=== PATIENT | female | born 1945 | race Caucasian/White ===

== ENCOUNTER → 2016-03-21 | Outpatient (REF) | payer MEDICARE ==
[~2016-03-21] MED LIST: ALLO100T PO; AMLO5TAB2 PO; ASPI81TA85 PO; BISO10TA PO; CRES20TA PO; CYAN1000VL IM; DRIS50002 PO; FERR325T PO; GLIP10TA6 PO; HYDR-4266 PO; HYDR12.55 PO; JANU100T PO; LEVO150T7 PO; MAGN400C2 PO; METF1000 PO; VITA100037 PO
[2016-03-21 12:46] LABS: BASO % 0.5 % (0.0-1.0); EOS # 0.1 K/mm3 (0.0-0.50); EOS % 1.9 % (0.0-3.0); LARGE UNSTAINED CELL # 0.1 K/mm3 (0.0-0.4); LARGE UNSTAINED CELL % 1.8 % (0.0-4.0); LYMPH # 0.6 K/mm3 (1.5-4.5); LYMPH % 9.1 % (24.0-44.0); MEAN CORPUSCULAR HEMOGLOBIN 29.4 pg (27.0-33.0); MEAN CORPUSCULAR HGB CONC 31.6 g/dl (32.0-36.5); MEAN CORPUSCULAR VOLUME 93.1 fl (80.0-96.0); MONO # 0.5 K/mm3 (0.0-0.8); MONO % 7.4 % (0.0-5.0); NEUTROPHILS # 4.8 K/mm3 (1.8-7.7); NEUTROPHILS % 79.3 % (36.0-66.0); PLATELET COUNT, AUTOMATED 174 k/mm3 (150-450); RED CELL DISTRIBUTION WIDTH 13.4 % (11.5-14.5)
[2016-03-21 13:07] LABS: VITAMIN B12 LEVEL 1666 PG/ML
[2016-03-21 13:08] LABS: FOLATE 8.8 NG/ML
[2016-03-21 14:17] LABS: ALBUMIN 3.6 GM/DL (3.2-5.2); ALBUMIN/GLOBULIN RATIO 0.95 (1.00-1.93); ALKALINE PHOSPHATASE 91 U/L (45-117); ALT/SGPT 28 U/L (12-78); ANION GAP 10 MEQ/L (8-16); AST/SGOT 14 U/L (15-37); BILIRUBIN,TOTAL 0.4 MG/DL (0.2-1.0); BLOOD UREA NITROGEN 27 MG/DL (7-18); CARBON DIOXIDE LEVEL 28 MEQ/L (21-32); CHLORIDE LEVEL 104 MEQ/L (98-107); CHOLESTEROL LEVEL 141 MG/DL (<200); CREATININE FOR GFR 0.85 MG/DL (0.55-1.02); GLOMERULAR FILTRATION RATE > 60.0 (>39); GLUCOSE, FASTING 141 MG/DL (83-110); MAGNESIUM LEVEL 1.3 MG/DL (1.8-2.4); POTASSIUM SERUM 4.5 MEQ/L (3.5-5.1); SODIUM LEVEL 142 MEQ/L (136-145); TOTAL PROTEIN 7.4 GM/DL (6.4-8.2); TRIGLYCERIDES LEVEL 166 MG/DL (<150)
== END ==
LOC: M SFHCADAM 08:15
PROVIDERS: ATTEND Physician Assistant Medical
DX: D51.8 Other vitamin B12 deficiency anemias (principal); E78.4 Other hyperlipidemia; E83.42 Hypomagnesemia; E03.9 Hypothyroidism, unspecified; E11.9 Type 2 diabetes mellitus without complications

== ENCOUNTER → 2016-03-29 | Outpatient (REF) | payer MEDICARE | LOC: M SFHCADAM 08:48 | PROVIDERS: ATTEND Physician Assistant Medical | DX: E03.9 Hypothyroidism, unspecified (principal); E78.4 Other hyperlipidemia; E11.9 Type 2 diabetes mellitus without complications; D51.8 Other vitamin B12 deficiency anemias ==

== ENCOUNTER → 2016-05-17 | Outpatient (REF) | payer MEDICARE ==
[2016-05-17 12:53] LABS: MEAN CORPUSCULAR HEMOGLOBIN 30.4 pg (27.0-33.0); MEAN CORPUSCULAR HGB CONC 32.6 g/dl (32.0-36.5); MEAN CORPUSCULAR VOLUME 93.3 fl (80.0-96.0); RED CELL DISTRIBUTION WIDTH 13.7 % (11.5-14.5); WHITE BLOOD COUNT 5.5 K/mm3 (4.0-10.0)
[2016-05-17 13:27] LABS: FREE T4 1.38 NG/DL (0.76-1.46); PERCENT SATURATION 18.5 % (13.2-37.4)
== END ==
LOC: M SFHCADAM 08:15
PROVIDERS: ATTEND Physician Assistant Medical
DX: Z00.00 Encounter for general adult medical examination without abnormal findings (principal); N18.3 Chronic kidney disease, stage 3 (moderate); E03.9 Hypothyroidism, unspecified; E11.9 Type 2 diabetes mellitus without complications; E55.9 Vitamin D deficiency, unspecified

== ENCOUNTER → 2016-09-29 | Outpatient (REF) | payer MEDICARE ==
[~2016-09-29] MED LIST changes: +FERR1TAB8 PO; -FERR325T PO; +HYDR-3910 PO; -HYDR-4266 PO; -METF1000 PO; +METF10004 PO; -VITA100037 PO; +VITA100067 PO
[2016-09-29 12:59] LABS: BASO % 0.5 % (0.0-1.0); EOS # 0.2 K/mm3 (0.0-0.50); EOS % 3.5 % (0.0-3.0); LARGE UNSTAINED CELL # 0.1 K/mm3 (0.0-0.4); LARGE UNSTAINED CELL % 1.5 % (0.0-4.0); LYMPH # 0.8 K/mm3 (1.5-4.5); LYMPH % 11.2 % (24.0-44.0); MEAN CORPUSCULAR HEMOGLOBIN 31.4 pg (27.0-33.0); MEAN CORPUSCULAR HGB CONC 33.9 g/dl (32.0-36.5); MEAN CORPUSCULAR VOLUME 92.7 fl (80.0-96.0); MONO # 0.4 K/mm3 (0.0-0.8); MONO % 7.4 % (0.0-5.0); NEUTROPHILS # 4.5 K/mm3 (1.8-7.7); NEUTROPHILS % 75.8 % (36.0-66.0); PLATELET COUNT, AUTOMATED 198 k/mm3 (150-450); RED CELL DISTRIBUTION WIDTH 14.4 % (11.5-14.5)
[2016-09-29 13:20] LABS: ALBUMIN 3.8 GM/DL (3.2-5.2); ALBUMIN/GLOBULIN RATIO 1.03 (1.00-1.93); BILIRUBIN,TOTAL 0.4 MG/DL (0.2-1.0); CALCIUM LEVEL 9.7 MG/DL (8.8-10.2); FREE T4 1.67 NG/DL (0.76-1.46); MAGNESIUM LEVEL 1.5 MG/DL (1.8-2.4); POTASSIUM SERUM 4.5 MEQ/L (3.5-5.1); TOTAL PROTEIN 7.5 GM/DL (6.4-8.2)
== END ==
LOC: M SFHCADAM 07:59
PROVIDERS: ATTEND Physician Assistant Medical
DX: Z00.00 Encounter for general adult medical examination without abnormal findings (principal); D51.8 Other vitamin B12 deficiency anemias; I10 Essential (primary) hypertension; E03.9 Hypothyroidism, unspecified; E11.9 Type 2 diabetes mellitus without complications; E78.4 Other hyperlipidemia; E83.42 Hypomagnesemia; E55.9 Vitamin D deficiency, unspecified

== ENCOUNTER → 2016-12-22 | Outpatient (REF) | payer MEDICARE | LOC: M LAB REF 13:34 | PROVIDERS: ATTEND Internal Medicine Nephrology | DX: N39.0 Urinary tract infection, site not specified (principal) ==

== ENCOUNTER → 2017-04-27 | Outpatient (REF) | payer MEDICARE ==
[2017-04-27 19:02] LABS: BACTERIA, URINE SMALL AMOUNT; MUCUS, URINE MOD AMOUNT (NEGATIVE); RBC, URINE TNTC /hpf (0-3); SQUAMOUS EPITHELIAL CELL URINE LARGE AMOUNT /hpf (SMALL AMT); TRANSITIONAL EPI CELLS, URINE MOD AMOUNT /hpf
[2017-04-27 19:03] LABS: HYALINE CAST, URINE 0-1 /lpf (0-1); MICROSCOPIC EXAM PERFORMED
== END ==
LOC: M LAB REF 16:50
DX: R31.9 Hematuria, unspecified (principal)
CPT/HCPCS: 81015

== ENCOUNTER → 2017-05-02 | Outpatient (REF) | payer MEDICARE ==
[2017-05-02 14:00] LABS: ESTIMATED AVERAGE GLUCOSE 174 MG/DL (60-110); HEMOGLOBIN A1c 7.7 %
[2017-05-02 14:02] LABS: FOLATE 12.9 NG/ML; VITAMIN B12 LEVEL 906 PG/ML
[2017-05-02 14:10] LABS: CHOLESTEROL LEVEL 145 MG/DL (<200); CHOLESTEROL RISK RATIO 3.536 (<5); FREE T4 1.33 NG/DL (0.76-1.46); HDL CHOLESTEROL 41 MG/DL (>40); LDL CHOLESTEROL 70.2 MG/DL (<100); NON-HDL-C 104 MG/DL; THYROID STIMULATING HORMONE 0.626 uIU/ML (0.358-3.740); TRIGLYCERIDES LEVEL 169 MG/DL (<150)
== END ==
LOC: M SFHCADAM 08:32
DX: D51.8 Other vitamin B12 deficiency anemias (principal); E78.4 Other hyperlipidemia; E55.9 Vitamin D deficiency, unspecified; E11.9 Type 2 diabetes mellitus without complications; E03.9 Hypothyroidism, unspecified
CPT/HCPCS: 82746

== ENCOUNTER → 2017-05-16 | Outpatient (CLI) | payer MEDICARE | LOC: M RAD 11:48 | DX: R31.9 Hematuria, unspecified (principal); N18.3 Chronic kidney disease, stage 3 (moderate); E11.22 Type 2 diabetes mellitus with diabetic chronic kidney disease | CPT/HCPCS: 76775 ==

== ENCOUNTER → 2017-09-28 | Outpatient (REF) | payer MEDICARE ==
[2017-09-28 13:24] LABS: BASO % 0.4 % (0.0-1.0); EOS # 0.2 10^3/uL (0.0-0.50); EOS % 3.1 % (0.0-3.0); HEMATOCRIT 37.4 % (36.0-47.0); IMMATURE GRANULOCYTE % 0.9 % (0-3.0); LYMPH # 0.8 10^3/uL (1.5-4.5); LYMPH % 11.5 % (24.0-44.0); MEAN CORPUSCULAR HEMOGLOBIN 30.5 pg (27.0-33.0); MEAN CORPUSCULAR HGB CONC 32.1 g/dl (32.0-36.5); MEAN CORPUSCULAR VOLUME 94.9 fl (80.0-96.0); MONO # 0.5 10^3/uL (0.0-0.8); MONO % 7.4 % (0.0-5.0); NEUTROPHILS # 5.2 10^3/uL (1.8-7.7); NEUTROPHILS % 76.7 % (36.0-66.0); PLATELET COUNT, AUTOMATED 222 10^3/uL (150-450); RED BLOOD COUNT 3.94 10^6/uL (4.00-5.40); RED CELL DISTRIBUTION WIDTH 13.8 % (11.5-14.5); WHITE BLOOD COUNT 6.8 10^3/uL (4.0-10.0)
[2017-09-28 13:46] LABS: TOTAL 25(OH) VITAMIN D 23.7 NG/ML (30.0-100.0)
[2017-09-28 13:47] LABS: THYROID STIMULATING HORMONE 0.628 uIU/ML (0.358-3.740)
[2017-09-28 13:47] LABS: ALBUMIN 3.7 GM/DL (3.2-5.2); ALBUMIN/GLOBULIN RATIO 0.97 (1.00-1.93); ALKALINE PHOSPHATASE 106 U/L (45-117); ALT/SGPT 31 U/L (12-78); ANION GAP 10 MEQ/L (8-16); AST/SGOT 17 U/L (7-37); BILIRUBIN,TOTAL 0.4 MG/DL (0.2-1.0); BLOOD UREA NITROGEN 35 MG/DL (7-18); CALCIUM LEVEL 9.4 MG/DL (8.8-10.2); CARBON DIOXIDE LEVEL 25 MEQ/L (21-32); CHLORIDE LEVEL 106 MEQ/L (98-107); CHOLESTEROL LEVEL 155 MG/DL (<200); CHOLESTEROL RISK RATIO 3.604 (<5); FREE T4 1.35 NG/DL (0.76-1.46); GLOMERULAR FILTRATION RATE 57.9 (>39); GLUCOSE, FASTING 148 MG/DL (70-100); HDL CHOLESTEROL 43 MG/DL (>40); MAGNESIUM LEVEL 1.6 MG/DL (1.8-2.4); NON-HDL-C 112 MG/DL; SODIUM LEVEL 141 MEQ/L (136-145); TOTAL PROTEIN 7.5 GM/DL (6.4-8.2); TRIGLYCERIDES LEVEL 190 MG/DL (<150); VITAMIN B12 LEVEL 445 PG/ML (247-911)
[2017-09-28 14:16] LABS: POTASSIUM SERUM 6.2 MEQ/L (3.5-5.1)
[2017-09-28 14:31] LABS: ESTIMATED AVERAGE GLUCOSE 174 MG/DL (60-110); HEMOGLOBIN A1c 7.7 %
== END ==
LOC: M SFHCADAM 09:47
DX: E78.4 Other hyperlipidemia (principal); D51.8 Other vitamin B12 deficiency anemias; E03.9 Hypothyroidism, unspecified; E11.9 Type 2 diabetes mellitus without complications; E55.9 Vitamin D deficiency, unspecified; Z79.899 Other long term (current) drug therapy
CPT/HCPCS: 83735

== ENCOUNTER → 2017-10-01 | Outpatient (REF) | payer MEDICARE ==
[2017-10-01 18:28] LABS: ANION GAP 9 MEQ/L (8-16); BLOOD UREA NITROGEN 38 MG/DL (7-18); CALCIUM LEVEL 9.6 MG/DL (8.8-10.2); CARBON DIOXIDE LEVEL 25 MEQ/L (21-32); CHLORIDE LEVEL 107 MEQ/L (98-107); CREATININE FOR GFR 1.07 MG/DL (0.55-1.30); GLOMERULAR FILTRATION RATE 53.5 (>39); GLUCOSE, FASTING 183 MG/DL (70-100); SODIUM LEVEL 141 MEQ/L (136-145)
[2017-10-01 18:30] LABS: POTASSIUM SERUM 5.4 MEQ/L (3.5-5.1)
== END ==
LOC: M SFHCADAM 08:59
DX: E87.5 Hyperkalemia (principal)
CPT/HCPCS: 80048

== ENCOUNTER → 2018-05-03 | Outpatient (REF) | payer MEDICARE ==
[~2018-05-03] MED LIST changes: -AMLO5TAB2 PO; +AMLO5TAB6 PO; -DRIS50002 PO; +DRIS50003 PO
[2018-05-03 13:33] LABS: CHOLESTEROL RISK RATIO 3.976 (<5); THYROID STIMULATING HORMONE 0.894 uIU/ML (0.358-3.740); TOTAL 25(OH) VITAMIN D 25.5 NG/ML (30.0-100.0)
[2018-05-03 14:41] LABS: HEMOGLOBIN A1c 7.4 %
== END ==
LOC: M SFHCADAM 09:14
PROVIDERS: ATTEND Physician Assistant Medical
DX: E03.9 Hypothyroidism, unspecified (principal); N18.3 Chronic kidney disease, stage 3 (moderate); E55.9 Vitamin D deficiency, unspecified; E11.22 Type 2 diabetes mellitus with diabetic chronic kidney disease
CPT/HCPCS: 80061; 82306; 83036; 84443; G0463

== ENCOUNTER → 2018-11-19 | Outpatient (REF) | payer MEDICARE ==
[~2018-11-19] MED LIST changes: -BISO10TA PO; +BISO10TA13 PO; -CRES20TA PO; +CRES20TA2 PO
[2018-11-19 13:24] LABS: ALBUMIN 3.7 GM/DL (3.2-5.2); ALT/SGPT 26 U/L (12-78); BILIRUBIN,TOTAL 0.4 MG/DL (0.2-1.0); BLOOD UREA NITROGEN 29 MG/DL (7-18); CALCIUM LEVEL 9.6 MG/DL (8.8-10.2); CARBON DIOXIDE LEVEL 25 MEQ/L (21-32); CHLORIDE LEVEL 107 MEQ/L (98-107); CHOLESTEROL LEVEL 156 MG/DL (<200); CHOLESTEROL RISK RATIO 3.627 (<5); CREATININE FOR GFR 0.95 MG/DL (0.55-1.30); FERRITIN 20 NG/ML (8-252); GLOMERULAR FILTRATION RATE > 60.0 (>39); GLUCOSE, FASTING 130 MG/DL (70-100); HDL CHOLESTEROL 43 MG/DL (>40); IRON (FE) 60 UG/DL (50-170); LDL CHOLESTEROL 74 MG/DL (<100); NON-HDL-C 113 MG/DL; PERCENT SATURATION 14.5 % (13.2-45.0); POTASSIUM SERUM 5.3 MEQ/L (3.5-5.1); SODIUM LEVEL 142 MEQ/L (136-145); THYROID STIMULATING HORMONE 0.867 uIU/ML (0.358-3.740); TOTAL 25(OH) VITAMIN D 25.9 NG/ML (30.0-100.0); TOTAL IRON BINDING CAPACITY 414 UG/DL (250-450); TOTAL PROTEIN 7.9 GM/DL (6.4-8.2); TRIGLYCERIDES LEVEL 196 MG/DL (<150); VITAMIN B12 LEVEL 476 PG/ML (247-911)
[2018-11-19 13:28] LABS: MAU/CREAT RATIO 281.8 MCG/MG (0.0-30.0)
== END ==
LOC: M SFHCADAM 09:34
PROVIDERS: ATTEND Physician Assistant Medical
DX: D51.8 Other vitamin B12 deficiency anemias (principal); E55.9 Vitamin D deficiency, unspecified; E03.9 Hypothyroidism, unspecified; D50.9 Iron deficiency anemia, unspecified; M1A.3790 Chronic gout due to renal impairment, unspecified ankle and foot, without tophus (tophi); E11.22 Type 2 diabetes mellitus with diabetic chronic kidney disease; E78.2 Mixed hyperlipidemia
CPT/HCPCS: 80053; 80061; 82043; 82306; 82607; 82728; 83550; 84439; 84443; 93005; G0463

== ENCOUNTER → 2018-12-26 | Outpatient (REF) | payer MEDICARE | LOC: M LAB REF 16:56 | PROVIDERS: ATTEND Nurse Practitioner Family | DX: E83.42 Hypomagnesemia (principal) ==

== ENCOUNTER → 2019-04-03 | Outpatient (REF) | payer MEDICARE | LOC: M LAB REF 16:45 | PROVIDERS: ATTEND Nurse Practitioner Family | DX: E83.42 Hypomagnesemia (principal) ==

== ENCOUNTER 2019-04-08 10:42 | Outpatient (CLI) | payer MEDICARE ==
[~2019-04-08] VITALS: Ht 157.5 cm; Wt 78.7 kg
[2019-04-08 11:08] VITALS: BP 152/65
[2019-04-08] MEDS: MAG SULF 1GM/100ML (MAG RUN) X 2 DOSES (2GM TOTAL) IV SCH ×4 (11:30→12:19)
[2019-04-08 12:00] VITALS: BP 137/65
[2019-04-08 13:10] VITALS: BP 156/74
== END 2019-04-08 13:10 | disposition home or self-care (01) ==
LOC: M INFU 10:42
PROVIDERS: ATTEND Internal Medicine Nephrology
DX: E83.42 Hypomagnesemia (principal); Z88.2 Allergy status to sulfonamides
CPT/HCPCS: 96365; J3475

== ENCOUNTER → 2019-08-14 | Outpatient (REF) | payer MEDICARE ==
[2019-08-14 18:55] LABS: MAGNESIUM URINE RANDOM 4.5 MG/DL
== END ==
LOC: M LAB REF 16:38
PROVIDERS: ATTEND Nurse Practitioner Family
DX: E83.42 Hypomagnesemia (principal); N18.3 Chronic kidney disease, stage 3 (moderate)

== ENCOUNTER → 2019-11-25 | Outpatient (REF) | payer MEDICARE ==
[~2019-11-25] MED LIST changes: +AMLO1TAB24 PO; -AMLO5TAB6 PO; -ASPI81TA85 PO; +ASPI81TA86 PO
[2019-11-25 19:01] LABS: CREATININE 24 HOUR, URINE 425.7 MG/24HR (600-1800); MAGNESIUM, URINE 5.3 MG/DL; URINE MAGNESIUM 24HR 17.4 MG/24HR (24-255)
== END ==
LOC: M LAB REF 17:48
PROVIDERS: ATTEND Nurse Practitioner Family
DX: E83.42 Hypomagnesemia (principal); N18.3 Chronic kidney disease, stage 3 (moderate)

== ENCOUNTER → 2019-12-02 | Outpatient (REF) | payer MEDICARE ==
[2019-12-02 14:17] LABS: BASO % 0.5 % (0.0-1.0); EOS # 0.2 10^3/uL (0.0-0.5); EOS % 2.4 % (0.0-3.0); HEMATOCRIT 38.1 % (36.0-47.0); HEMOGLOBIN 11.7 g/dl (12.0-15.5); LYMPH # 0.8 10^3/uL (1.5-5.0); LYMPH % 12.7 % (24.0-44.0); MEAN CORPUSCULAR HEMOGLOBIN 29.7 pg (27.0-33.0); MEAN CORPUSCULAR HGB CONC 30.7 g/dl (32.0-36.5); MEAN CORPUSCULAR VOLUME 96.7 fl (80.0-96.0); MONO # 0.6 10^3/uL (0.0-0.8); MONO % 9.3 % (0.0-5.0); NEUTROPHILS # 4.9 10^3/uL (1.5-8.5); NEUTROPHILS % 74.3 % (36.0-66.0); PLATELET COUNT, AUTOMATED 247 10^3/uL (150-450); RED BLOOD COUNT 3.94 10^6/uL (4.00-5.40); WHITE BLOOD COUNT 6.6 10^3/uL (4.0-10.0)
[2019-12-02 14:31] LABS: ALBUMIN 3.5 GM/DL (3.2-5.2); ALT/SGPT 26 U/L (12-78); BILIRUBIN,TOTAL 0.4 MG/DL (0.2-1.0); BLOOD UREA NITROGEN 33 MG/DL (7-18); CALCIUM LEVEL 9.6 MG/DL (8.8-10.2); CARBON DIOXIDE LEVEL 25 MEQ/L (21-32); CHLORIDE LEVEL 108 MEQ/L (98-107); CHOLESTEROL LEVEL 137 MG/DL (<200); CHOLESTEROL RISK RATIO 3.512 (<5); CREATININE FOR GFR 0.86 MG/DL (0.55-1.30); FERRITIN 17 NG/ML (8-252); FREE T4 1.64 NG/DL (0.76-1.46); GLOMERULAR FILTRATION RATE > 60.0 (>39); GLUCOSE, FASTING 142 MG/DL (70-100); HDL CHOLESTEROL 39 MG/DL (>40); IRON (FE) 66 UG/DL (50-170); LDL CHOLESTEROL 69 MG/DL (<100); NON-HDL-C 98 MG/DL; PERCENT SATURATION 21.1 % (13.2-45.0); POTASSIUM SERUM 5.3 MEQ/L (3.5-5.1); SODIUM LEVEL 140 MEQ/L (136-145); THYROID STIMULATING HORMONE 0.372 uIU/ML (0.358-3.740); TOTAL 25(OH) VITAMIN D 28.1 NG/ML (30.0-100.0); TOTAL IRON BINDING CAPACITY 313 UG/DL (250-450); TOTAL PROTEIN 7.4 GM/DL (6.4-8.2); TRIGLYCERIDES LEVEL 143 MG/DL (<150); VITAMIN B12 LEVEL 1255 PG/ML (247-911)
[2019-12-02 15:44] LABS: HEMOGLOBIN A1c 6.7 %
== END ==
LOC: M SFHCADAM 09:59
PROVIDERS: ATTEND Physician Assistant Medical
DX: E11.22 Type 2 diabetes mellitus with diabetic chronic kidney disease (principal); I10 Essential (primary) hypertension; E55.9 Vitamin D deficiency, unspecified; E03.9 Hypothyroidism, unspecified; I50.32 Chronic diastolic (congestive) heart failure; E83.42 Hypomagnesemia; D50.9 Iron deficiency anemia, unspecified; E78.2 Mixed hyperlipidemia; D51.8 Other vitamin B12 deficiency anemias

== ENCOUNTER → 2020-06-01 | Outpatient (REF) | payer MEDICARE | LOC: M LAB REF 17:11 | PROVIDERS: ATTEND Physician Assistant | DX: C44.529 Squamous cell carcinoma of skin of other part of trunk (principal) | CPT/HCPCS: 11102; 88305; G0463 ==

== ENCOUNTER → 2020-06-15 | Outpatient (REF) | payer MEDICARE ==
[2020-06-15 18:19] LABS: BASO % 0.7 % (0.0-1.0); EOS # 0.2 10^3/uL (0.0-0.5); EOS % 2.9 % (0.0-3.0); HEMATOCRIT 37.2 % (36.0-47.0); HEMOGLOBIN 11.3 g/dl (12.0-15.5); LYMPH % 17.3 % (24.0-44.0); MEAN CORPUSCULAR HEMOGLOBIN 29.2 pg (27.0-33.0); MEAN CORPUSCULAR HGB CONC 30.4 g/dl (32.0-36.5); MEAN CORPUSCULAR VOLUME 96.1 fl (80.0-96.0); MONO # 0.5 10^3/uL (0.0-0.8); MONO % 9.3 % (2.0-8.0); NEUTROPHILS % 68.9 % (36.0-66.0); PLATELET COUNT, AUTOMATED 254 10^3/uL (150-450); RED BLOOD COUNT 3.87 10^6/uL (4.00-5.40); WHITE BLOOD COUNT 5.8 10^3/uL (4.0-10.0)
[2020-06-15 19:09] LABS: HEMOGLOBIN A1c 6.3 %
[2020-06-15 19:37] LABS: CHOLESTEROL RISK RATIO 2.82 (<5); MAGNESIUM LEVEL 1.3 MG/DL (1.8-2.4); THYROID STIMULATING HORMONE 0.35 uIU/ML (0.358-3.740)
== END ==
LOC: M SFHCADAM 13:32
PROVIDERS: ATTEND Physician Assistant Medical
DX: E55.9 Vitamin D deficiency, unspecified (principal); I10 Essential (primary) hypertension; E03.9 Hypothyroidism, unspecified; D51.8 Other vitamin B12 deficiency anemias; Z79.899 Other long term (current) drug therapy

== ENCOUNTER → 2020-06-23 | Outpatient (CLI) | payer MEDICARE ==
--- NOTE | 2020-06-23 11:15 | REP ---
INDICATION: L ELBOW PAIN COMPARISON: None. TECHNIQUE: Four views left elbow. FINDINGS: There is no evidence of acute fracture, dislocation, or intrinsic bone disease.There is no radiographic evidence of a significant joint effusion. There is mild spurring of the coronoid process. There is mild tendinous calcification at the lateral humeral epicondyle. IMPRESSION: No fracture or dislocation. <Electronically signed by Jony Martinez > 06/23/20 [id number]
== END ==
LOC: M RAD 10:50
PROVIDERS: ATTEND Physician Assistant Medical
DX: M25.522 Pain in left elbow (principal)

== ENCOUNTER → 2020-07-10 | Outpatient (REF) | payer MEDICARE | LOC: M LAB REF 13:59 | PROVIDERS: ATTEND Dermatology | DX: L90.5 Scar conditions and fibrosis of skin (principal) ==

== ENCOUNTER 2021-12-06 23:34 | Emergency (ER) | payer MEDICARE ==
[~2021-12-06] VITALS: Ht 170.2 cm; Wt 77.5 kg
[2021-12-06] MEDS ORDERED: ATOR40TA75 PO (23:59)
[2021-12-07 00:14] LABS: BASO % 0.5 % (0.0-1.0); EOS # 0.2 10^3/uL (0.0-0.5); EOS % 2.2 % (0.0-3.0); HEMATOCRIT 36.3 % (36.0-47.0); HEMOGLOBIN 11.2 g/dl (12.0-15.5); LYMPH # 0.8 10^3/uL (1.5-5.0); LYMPH % 9.6 % (24.0-44.0); MEAN CORPUSCULAR HEMOGLOBIN 29.2 pg (27.0-33.0); MEAN CORPUSCULAR HGB CONC 30.9 g/dl (32.0-36.5); MEAN CORPUSCULAR VOLUME 94.8 fl (80.0-96.0); MONO # 0.4 10^3/uL (0.0-0.8); MONO % 5.1 % (2.0-8.0); NEUTROPHILS % 81.7 % (36.0-66.0); PLATELET COUNT, AUTOMATED 284 10^3/uL (150-450); RED BLOOD COUNT 3.83 10^6/uL (4.00-5.40); WHITE BLOOD COUNT 8.6 10^3/uL (4.0-10.0)
[2021-12-07 00:20] LABS: INR 0.93; PROTHROMBIN TIME 12.7 SECONDS (12.5-14.5)
[2021-12-07 00:21] LABS: PARTIAL THROMBOPLASTIN TIME 39.7 SECONDS (24.8-34.2)
[2021-12-07] MEDS ORDERED: hydrALAZINE 20MG/ML 1ML VIAL (J0360 PER 20MG) IV ONE (00:30)
[2021-12-07 00:35] LABS: CALCIUM LEVEL 9.3 MG/DL (8.8-10.2); CREATININE FOR GFR 1.28 MG/DL (0.55-1.30); POTASSIUM SERUM 4.2 MEQ/L (3.5-5.1)
[2021-12-07 00:36] LABS: CPK CREATINE PHOSPHOKINASE 181 U/L (26-192)
[2021-12-07 01:32] LABS: CPK CREATINE PHOSPHOKINASE 161 U/L (26-192)
[2021-12-07 02:32] VITALS: BP 192/84
[2021-12-07] MEDS ORDERED: **hydrALAZINE HCL** 25 MG TAB PO ONE (02:50)
[2021-12-07 03:08] VITALS: BP 192/84
[2021-12-11] MEDS ORDERED: ISOS30TAB PO (12:06)
== END 2021-12-07 03:23 | disposition home or self-care (01) ==
LOC: EDBD 23:34 → M ED 23:34
DX: I16.0 Hypertensive urgency (principal); I44.4 Left anterior fascicular block; I25.2 Old myocardial infarction; E11.9 Type 2 diabetes mellitus without complications; E78.5 Hyperlipidemia, unspecified; E03.9 Hypothyroidism, unspecified; Z88.2 Allergy status to sulfonamides; Z79.82 Long term (current) use of aspirin; Z79.811 Long term (current) use of aromatase inhibitors; Z79.899 Other long term (current) drug therapy
CPT/HCPCS: 36415; 70450; 71045; 80048; 82550; 83880; 84484; 85025; 85610; 85730; 93005; 93041; 94760; 96374; 99285; G0463; J0360

== ENCOUNTER 2021-12-09 22:52 | Observation (INO) | payer MEDICARE ==
[~2021-12-09] VITALS: Ht 157.5 cm; Wt 77.7 kg
[~2021-12-09 22:52] MED LIST changes: +ATOR40TA75 PO
[2021-12-09] MEDS ORDERED: LABETALOL 100MG/20ML VIAL IV STA (23:46)
[2021-12-10 00:20] LABS: BASO # 0.1 10^3/uL (0.0-0.2); BASO % 0.8 % (0.0-1.0); EOS # 0.2 10^3/uL (0.0-0.5); EOS % 2.8 % (0.0-3.0); HEMATOCRIT 34.8 % (36.0-47.0); HEMOGLOBIN 10.8 g/dl (12.0-15.5); LYMPH # 0.9 10^3/uL (1.5-5.0); LYMPH % 10.8 % (24.0-44.0); MEAN CORPUSCULAR HEMOGLOBIN 29.7 pg (27.0-33.0); MEAN CORPUSCULAR VOLUME 95.6 fl (80.0-96.0); MONO # 0.5 10^3/uL (0.0-0.8); NEUTROPHILS # 6.5 10^3/uL (1.5-8.5); NEUTROPHILS % 78.5 % (36.0-66.0); PLATELET COUNT, AUTOMATED 289 10^3/uL (150-450); RED BLOOD COUNT 3.64 10^6/uL (4.00-5.40); WHITE BLOOD COUNT 8.3 10^3/uL (4.0-10.0)
[2021-12-10] MEDS ORDERED: B-12100010 PO (00:26)
[2021-12-10] MEDS ORDERED: SYNT175T2 PO (00:26)
[2021-12-10] MEDS ORDERED: HYDR-3911 PO ×2 (00:26→04:59)
[2021-12-10] MEDS ORDERED: AMLO1TAB25 PO ×2 (00:26→04:59)
[2021-12-10 00:34] LABS: CALCIUM LEVEL 9.5 MG/DL (8.8-10.2); CREATININE FOR GFR 1.25 MG/DL (0.55-1.30); GLOMERULAR FILTRATION RATE 44.2 (>39); POTASSIUM SERUM 4.8 MEQ/L (3.5-5.1)
[2021-12-10] MEDS ORDERED: VITA500T41 PO (00:34)
[2021-12-10] MEDS ORDERED: [UNRECOGNIZED DRUG - CODE] PO (00:34)
[2021-12-10 00:37] LABS: CPK CREATINE PHOSPHOKINASE 144 U/L (26-192)
[2021-12-10 04:05] LABS: RSV AMPLIFICATION NEGATIVE (NEGATIVE)
[2021-12-10] MEDS ORDERED: bisoproloL fumarate 5 MG TAB PO ONE (04:25)
[2021-12-10] MEDS ORDERED: GLUCOSE 4GM CHEW TABLET PO PRN (04:25)
[2021-12-10] MEDS ORDERED: DEXTROSE 50% 50 ML SYRINGE IV PRN (04:25)
[2021-12-10] MEDS ORDERED: **hydrALAZINE** 50 MG TAB PO ONE (04:25)
[2021-12-10] MEDS ORDERED: ACETAMINOPHEN TAB 650MG DOSE (2X325MG) PO PRN (04:25)
[2021-12-10] MEDS ORDERED: GLUCAGON INJ 1MG VIAL SC PRN (04:25)
[2021-12-10] MEDS ORDERED: GLIP10TA18 PO (04:59)
[2021-12-10] MEDS ORDERED: BISO5TAB14 PO (04:59)
[2021-12-10] MEDS ORDERED: ACET-907 PO (04:59)
[2021-12-10] MEDS ORDERED: VITA100093 PO (04:59)
[2021-12-10] MEDS ORDERED: SLOWTAB2 PO (04:59)
[2021-12-10] MEDS ORDERED: ASPI-161 PO (04:59)
[2021-12-10] MEDS ORDERED: B-121TAB3 PO (04:59)
[2021-12-10] MEDS ORDERED: SYNT150T PO (04:59)
[2021-12-10] MEDS ORDERED: HOME MED LIST COMPLETE! XX SCH (05:00)
[2021-12-10] MEDS ORDERED: LEVOTHYROXINE 150MCG TABLET (0.15MG) PO SCH (06:00)
[2021-12-10 06:32] LABS: HEMOGLOBIN 10.5 g/dl (12.0-15.5); MEAN CORPUSCULAR HEMOGLOBIN 29.3 pg (27.0-33.0); MEAN CORPUSCULAR HGB CONC 30.9 g/dl (32.0-36.5); PLATELET COUNT, AUTOMATED 264 10^3/uL (150-450); RED BLOOD COUNT 3.58 10^6/uL (4.00-5.40); WHITE BLOOD COUNT 7.1 10^3/uL (4.0-10.0)
[2021-12-10 06:50] LABS: INR 1.03; PROTHROMBIN TIME 13.7 SECONDS (12.5-14.5)
[2021-12-10 06:51] LABS: PARTIAL THROMBOPLASTIN TIME 37.9 SECONDS (24.8-34.2)
[2021-12-10 06:53] LABS: CALCIUM LEVEL 9.5 MG/DL (8.8-10.2); CREATININE FOR GFR 0.98 MG/DL (0.55-1.30); GLOMERULAR FILTRATION RATE 58.6 (>39); POTASSIUM SERUM 4.7 MEQ/L (3.5-5.1)
[2021-12-10] MEDS: INSULIN LISPRO (NovoLOG) PER UNIT SC SCH ×2 (07:30→12:00)
[2021-12-10] MEDS ORDERED: HEPARIN SOD (PORCINE) 5000UNITS/ML 1ML VIAL/SYRINGE SC SCH (09:00)
[2021-12-10] MEDS ORDERED: ASPIRIN 81MG ENTERIC TABLET PO SCH (09:00)
[2021-12-10] MEDS ORDERED: DOCUSATE SODIUM 100MG CAPSULE PO SCH (09:00)
[2021-12-10] MEDS ORDERED: LABETALOL 100MG/20ML VIAL IV SCH (09:00)
[2021-12-10] MEDS ORDERED: NITROGLYCERIN 2% OINT 1 GM *U/D* PKT TOP SCH (09:00)
[2021-12-10] MEDS ORDERED: allopurinoL 100 MG TAB PO SCH (09:00)
[2021-12-10] MEDS ORDERED: hydrALAZINE 20MG/ML 1ML VIAL (J0360 PER 20MG) IV SCH (09:00)
[2021-12-10] MEDS ORDERED: ATORVASTATIN 20 MG TAB PO SCH (09:00)
[2021-12-10 09:44] VITALS: BP 195/84
[2021-12-10] MEDS ORDERED: **hydrALAZINE** 50 MG TAB PO SCH ×3 (12:00→14:00)
[2021-12-10] MEDS ORDERED: ISOSORBIDE DIN. (ISORDIL) 30 MG TAB PO SCH (12:00)
[2021-12-10] MEDS ORDERED: cloNIDine 0.1MG TABLET PO SCH (12:00)
[2021-12-10] MEDS ORDERED: HYDR100T PO (12:24)
[2021-12-10] MEDS ORDERED: ISOR1TAB2 PO (12:24)
[2021-12-10] MEDS ORDERED: CLONI1TA PO (12:31)
[2021-12-10 16:16] VITALS: BP 147/68
[2021-12-10] MEDS ORDERED: INSULIN LISPRO (NovoLOG) PER UNIT SC SCH (21:00)
[2021-12-11] MEDS ORDERED: bisoproloL fumarate 5 MG TAB PO SCH (09:00)
[2021-12-11] MEDS ORDERED: ISOS30TAB PO (12:06)
== END 2021-12-10 16:17 | disposition home or self-care (01) ==
LOC: M ED 22:52 → M ED INP 22:53
PROVIDERS: ADMIT Internal Medicine; ATTEND Internal Medicine
DX: I16.0 Hypertensive urgency (principal); N18.30 Chronic kidney disease, stage 3 unspecified; D63.1 Anemia in chronic kidney disease; I12.9 Hypertensive chronic kidney disease with stage 1 through stage 4 chronic kidney disease, or unspecified chronic kidney disease; E11.9 Type 2 diabetes mellitus without complications; E78.5 Hyperlipidemia, unspecified; Z87.891 Personal history of nicotine dependence; Z79.84 Long term (current) use of oral hypoglycemic drugs; Z79.82 Long term (current) use of aspirin; M10.9 Gout, unspecified; E03.9 Hypothyroidism, unspecified; Z79.899 Other long term (current) drug therapy; E66.9 Obesity, unspecified
CPT/HCPCS: 36415; 70450; 76775; 80048; 82088; 82550; 84244; 84484; 85025; 85027; 85610; 85730; 87631; 93005; 93041; 93975; 94760; 96372; 96374; 96375; 97161; 99285; G0378; J0360; J1644

== ENCOUNTER → 2021-12-14 | Outpatient (CLI) | payer MEDICARE ==
[~2021-12-14] MED LIST changes: +ACET-907 PO; +AMLO1TAB25 PO; +ASPI-161 PO; +B-12100010 PO; +B-121TAB3 PO; +BISO5TAB14 PO; +CLONI1TA PO; +GLIP10TA18 PO; +HYDR-3911 PO; +HYDR100T PO; +ISOR1TAB2 PO; +ISOS30TAB PO; +ISOVUE-370 76% 100ML VIAL As Ordered ONE; +SLOWTAB2 PO; +SYNT150T PO; +SYNT175T2 PO; +VITA100093 PO; +VITA500T41 PO; +[UNRECOGNIZED DRUG - CODE] PO
== END ==
LOC: M RAD 12:25
PROVIDERS: ATTEND Nurse Practitioner Family
DX: N17.9 Acute kidney failure, unspecified (principal); I10 Essential (primary) hypertension; I70.1 Atherosclerosis of renal artery
CPT/HCPCS: 74174; Q9967

== ENCOUNTER 2021-12-17 07:20 | Emergency (ER) | payer MEDICARE ==
[~2021-12-17] VITALS: Ht 157.5 cm; Wt 72.7 kg
[~2021-12-17 07:20] MED LIST changes: -ISOVUE-370 76% 100ML VIAL As Ordered ONE
[2021-12-17 08:25] LABS: CALCIUM LEVEL 9.3 MG/DL (8.8-10.2); CREATININE FOR GFR 1.03 MG/DL (0.55-1.30); GLOMERULAR FILTRATION RATE 55.3 (>39); POTASSIUM SERUM 3.9 MEQ/L (3.5-5.1)
[2021-12-17 09:33] VITALS: BP 149/69
[2021-12-17] MEDS ORDERED: ACETAMINOPHEN TAB 650MG DOSE (2X325MG) PO ONE (09:35)
== END 2021-12-17 09:40 | disposition home or self-care (01) ==
LOC: EDBD 07:20 → M ED 07:20
DX: I10 Essential (primary) hypertension (principal); I44.4 Left anterior fascicular block; I25.2 Old myocardial infarction; E11.9 Type 2 diabetes mellitus without complications; Z87.891 Personal history of nicotine dependence; Z88.2 Allergy status to sulfonamides; Z79.82 Long term (current) use of aspirin; Z79.4 Long term (current) use of insulin; Z79.899 Other long term (current) drug therapy; Z79.84 Long term (current) use of oral hypoglycemic drugs

== ENCOUNTER → 2021-12-30 | Outpatient (CLI) | payer MEDICARE | LOC: M LABSMTC 11:49 | PROVIDERS: ATTEND Anesthesiology | DX: Z01.812 Encounter for preprocedural laboratory examination (principal); Z20.822 Contact with and (suspected) exposure to COVID-19 ==

== ENCOUNTER → 2022-01-03 | Outpatient (CLI) | payer MEDICARE | LOC: M WHC 13:16 | PROVIDERS: ATTEND Physician Assistant Medical | DX: N63.24 Unspecified lump in the left breast, lower inner quadrant (principal) | CPT/HCPCS: 76642; 77066; G0279 ==

== ENCOUNTER → 2022-01-06 | Outpatient (CLI) | payer MEDICARE ==
[~2022-01-06] MED LIST changes: +BUSP5TA PO; +CLOP75TA99 PO; +COLA100C5 PO; +HYDR-3490 PO; +LIPI20TA PO; +LISI10TA22 PO; +LISI20TA33 PO; +MAGN400T2 PO; +METO1TAB7 PO; +ONDA-84 PO; +PERCOCET PO; +PROC10TA5 PO; +SENN18TA PO; +VITA200048 PO
== END ==
LOC: M LABSMTC 10:26
PROVIDERS: ATTEND Anesthesiology
DX: Z01.812 Encounter for preprocedural laboratory examination (principal); Z20.822 Contact with and (suspected) exposure to COVID-19

== ENCOUNTER 2022-01-10 09:30 | Day surgery (SDC) | payer MEDICARE ==
[~2022-01-10] VITALS: Ht 157.5 cm; Wt 78.5 kg
[~2022-01-10 09:30] MED LIST changes: -BUSP5TA PO; -CLOP75TA99 PO; -COLA100C5 PO; -HYDR-3490 PO; +LIDOCAINE 2% 100MG/5ML SDV (FOR ANES.) As Ordered ONE; -LIPI20TA PO; -LISI10TA22 PO; -LISI20TA33 PO; -MAGN400T2 PO; -METO1TAB7 PO; -ONDA-84 PO; -PERCOCET PO; -PROC10TA5 PO; -SENN18TA PO; -VITA200048 PO; +[UNRECOGNIZED DRUG - REMARK] XX SCH; +ceFAZolin SOD 2 GM in IV 1 EA IV ONE
[2022-01-10] MEDS ORDERED: LR 1,000 ML IV SCH (10:05)
[2022-01-10 10:14] LABS: HEMATOCRIT 34.1 % (36.0-47.0); HEMOGLOBIN 10.5 g/dl (12.0-15.5); MEAN CORPUSCULAR HEMOGLOBIN 29.3 pg (27.0-33.0); MEAN CORPUSCULAR HGB CONC 30.8 g/dl (32.0-36.5); MEAN CORPUSCULAR VOLUME 95.3 fl (80.0-96.0); PLATELET COUNT, AUTOMATED 236 10^3/uL (150-450); RED BLOOD COUNT 3.58 10^6/uL (4.00-5.40); WHITE BLOOD COUNT 6.3 10^3/uL (4.0-10.0)
[2022-01-10 10:20] VITALS: BP 182/88
[2022-01-10] MEDS ORDERED: propofoL 200 MG/20 ML VIAL As Ordered ONE (10:28)
[2022-01-10] MEDS ORDERED: dexameTHASONE 4 MG/ML 1ML VIAL (J1100 PER 1MG) As Ordered ONE (10:31)
[2022-01-10] MEDS ORDERED: fentaNYL 100 MCG/2 ML INJECTION As Ordered ONE (10:31)
[2022-01-10] MEDS ORDERED: ONDANSETRON 4MG 2ML VIAL As Ordered ONE (10:31)
[2022-01-10 10:51] LABS: INR 1.09; PROTHROMBIN TIME 14.4 SECONDS (12.5-14.5)
[2022-01-10 10:52] LABS: PARTIAL THROMBOPLASTIN TIME 35.4 SECONDS (24.8-34.2)
[2022-01-10 10:59] LABS: CALCIUM LEVEL 9.8 MG/DL (8.8-10.2); CREATININE FOR GFR 1.26 MG/DL (0.55-1.30); GLOMERULAR FILTRATION RATE 43.8 (>39); POTASSIUM SERUM 4.6 MEQ/L (3.5-5.1)
[2022-01-10] MEDS ORDERED: THROMBIN SOLN 20,000 UNITS KIT As Ordered ONE (11:20)
[2022-01-10] MEDS ORDERED: HEPARIN SOD (PORCINE) 5000UNITS/ML 1ML VIAL/SYRINGE As Ordered ONE (11:20)
[2022-01-10] MEDS ORDERED: ISOVUE-300 61% 50ML VIAL As Ordered ONE (11:20)
[2022-01-12] MEDS ORDERED: BUSP5TA PO (10:47)
== END 2022-01-10 11:54 | disposition home or self-care (01) ==
LOC: M SDC 09:30
PROVIDERS: ATTEND Surgery Vascular Surgery
DX: I15.0 Renovascular hypertension (principal); Z53.09 Procedure and treatment not carried out because of other contraindication
CPT/HCPCS: 36415; 80048; 85027; 85610; 85730; 86850; 86900; 86901; J1100; J2405; J3010

== ENCOUNTER → 2022-01-12 | Outpatient (CLI) | payer MEDICARE ==
[~2022-01-12] MED LIST changes: +BUSP5TA PO; +CLOP75TA99 PO; +COLA100C5 PO; +HYDR-3490 PO; -LIDOCAINE 2% 100MG/5ML SDV (FOR ANES.) As Ordered ONE; +LIPI20TA PO; +LISI10TA22 PO; +MAGN400T2 PO; +METO1TAB7 PO; +PERCOCET PO; +SENN18TA PO; -[UNRECOGNIZED DRUG - REMARK] XX SCH; -ceFAZolin SOD 2 GM in IV 1 EA IV ONE
[2022-01-12 12:25] VITALS: BP 160/56
== END ==
LOC: M WHCPRO 10:24
PROVIDERS: ATTEND Surgery
DX: R92.8 Other abnormal and inconclusive findings on diagnostic imaging of breast (principal); N63.24 Unspecified lump in the left breast, lower inner quadrant
CPT/HCPCS: 10035; 11104; 19083; 38505; 76642; 77065; 88305; A4648

== ENCOUNTER → 2022-01-12 | Outpatient (CLI) | payer MEDICARE ==
[~2022-01-12] MED LIST changes: -CLOP75TA99 PO; -COLA100C5 PO; -HYDR-3490 PO; -LIPI20TA PO; -LISI10TA22 PO; -MAGN400T2 PO; -METO1TAB7 PO; -PERCOCET PO; -SENN18TA PO
== END ==
LOC: M WHC 10:31
PROVIDERS: ATTEND Surgery
DX: R59.9 Enlarged lymph nodes, unspecified (principal); R92.8 Other abnormal and inconclusive findings on diagnostic imaging of breast

== ENCOUNTER → 2022-01-19 | Outpatient (CLI) | payer MEDICARE ==
[2022-01-19 14:24] LABS: CALCIUM LEVEL 9.5 MG/DL (8.3-10.6); GLOMERULAR FILTRATION RATE 57.2 (>39); POTASSIUM SERUM 4.8 MMOL/L (3.5-5.1)
== END ==
LOC: M PLALAB 11:15
PROVIDERS: ATTEND Surgery
DX: C50.312 Malignant neoplasm of lower-inner quadrant of left female breast (principal)

== ENCOUNTER → 2022-01-27 | Outpatient (CLI) | payer MEDICARE ==
[~2022-01-27] MED LIST changes: +CLOP75TA99 PO; +COLA100C5 PO; +HYDR-3490 PO; +LIPI20TA PO; +LISI10TA22 PO; +LISI20TA33 PO; +MAGN400T2 PO; +METO1TAB7 PO; +ONDA-84 PO; +PERCOCET PO; +PROC10TA5 PO; +SENN18TA PO; +VITA200048 PO
== END ==
LOC: M LABSMTC 10:32
PROVIDERS: ATTEND Anesthesiology
DX: Z20.828 Contact with and (suspected) exposure to other viral communicable diseases (principal); Z11.59 Encounter for screening for other viral diseases

== ENCOUNTER → 2022-01-27 | Outpatient (CLI) | payer MEDICARE ==
[~2022-01-27] MED LIST changes: +PROHANCE 279.3MG/ML 15ML VIAL As Ordered ONE
== END ==
LOC: M RAD 14:10
PROVIDERS: ATTEND Surgery
DX: C50.312 Malignant neoplasm of lower-inner quadrant of left female breast (principal)
CPT/HCPCS: 87635; A9576; C8908

== ENCOUNTER 2022-02-01 07:20 | Inpatient (IN) | payer MEDICARE ==
[~2022-02-01] VITALS: Ht 157.5 cm; Wt 85.0 kg
[~2022-02-01 07:20] MED LIST changes: -CLOP75TA99 PO; -COLA100C5 PO; -LIPI20TA PO; -LISI20TA33 PO; -MAGN400T2 PO; -METO1TAB7 PO; -ONDA-84 PO; -PERCOCET PO; -PROC10TA5 PO; -PROHANCE 279.3MG/ML 15ML VIAL As Ordered ONE; -SENN18TA PO; -VITA200048 PO; +ceFAZolin SOD 2 GM in IV 1 EA IV ONE
[2022-02-01 07:51] LABS: HEMATOCRIT 34.9 % (36.0-47.0); HEMOGLOBIN 10.8 g/dl (12.0-15.5); MEAN CORPUSCULAR HEMOGLOBIN 29.4 pg (27.0-33.0); MEAN CORPUSCULAR HGB CONC 30.9 g/dl (32.0-36.5); MEAN CORPUSCULAR VOLUME 95.1 fl (80.0-96.0); PLATELET COUNT, AUTOMATED 258 10^3/uL (150-450); RED BLOOD COUNT 3.67 10^6/uL (4.00-5.40)
[2022-02-01 08:21] LABS: BLOOD UREA NITROGEN 35 MG/DL (9-23); CALCIUM LEVEL 9.7 MG/DL (8.3-10.6); CARBON DIOXIDE LEVEL 28 MMOL/L (20-31); CHLORIDE LEVEL 101 MMOL/L (98-107); GLOMERULAR FILTRATION RATE > 60.0 (>39); GLUCOSE, FASTING 183 MG/DL (74-106); INR 1.04; POTASSIUM SERUM 4.8 MMOL/L (3.5-5.1); PROTHROMBIN TIME 13.8 SECONDS (12.5-14.5); SODIUM LEVEL 138 MMOL/L (136-145)
[2022-02-01 08:22] LABS: PARTIAL THROMBOPLASTIN TIME 41.3 SECONDS (24.8-34.2)
[2022-02-01] MEDS ORDERED: propofoL 500 MG/50 ML VIAL As Ordered ONE ×2 (08:51→13:38)
[2022-02-01] MEDS ORDERED: MIDAZOLAM INJ 2MG/2ML VIAL (J2250 PER 1MG) As Ordered ONE ×2 (08:51→13:38)
[2022-02-01] MEDS ORDERED: LIDOCAINE 2% 100MG/5ML SDV (FOR ANES.) As Ordered ONE ×2 (08:51→13:37)
[2022-02-01] MEDS ORDERED: fentaNYL 100 MCG/2 ML INJECTION As Ordered ONE ×2 (08:52→13:38)
[2022-02-01] MEDS ORDERED: BUPIVACAINE/EPIN 0.5% 30ML VIAL As Ordered ONE (09:09)
[2022-02-01] MEDS ORDERED: ISOVUE-300 61% 50ML VIAL As Ordered ONE ×3 (09:09→14:57)
[2022-02-01] MEDS ORDERED: HEPARIN SOD (PORCINE) 5000UNITS/ML 1ML VIAL/SYRINGE As Ordered ONE ×2 (10:18→15:08)
[2022-02-01] MEDS ORDERED: ePHEDrine SULFATE 25 MG/5 ML(5MG/ML) SYRINGE As Ordered ONE ×2 (10:38→14:36)
[2022-02-01] MEDS: LIDOCAINE 1% SDV 30ML VIAL As Ordered ONE ×2 (10:48→10:49)
[2022-02-01] MEDS ORDERED: CLOPIDOGREL 300 MG TAB (PLAVIX) PO STA (11:16)
[2022-02-01] MEDS ORDERED: ONDANSETRON 4MG 2ML VIAL IV PRN (11:20)
[2022-02-01] MEDS ORDERED: oxyCODONE 5MG TAB PO PRN (11:20)
[2022-02-01] MEDS ORDERED: MORPHINE 2 MG/ML 1ML VIAL IV PRN (11:20)
[2022-02-01] MEDS ORDERED: fentaNYL 100 MCG/2 ML INJECTION IV PRN (11:20)
[2022-02-01] MEDS ORDERED: LR 1,000 ML IV SCH (11:20)
[2022-02-01] MEDS ORDERED: CLOP75TA99 PO (11:22)
[2022-02-01] MEDS ORDERED: ACETAMINOPHEN TAB 650MG DOSE (2X325MG) PO ONE ×2 (12:15→17:50)
[2022-02-01 12:59] LABS: HEMATOCRIT 27.3 % (36.0-47.0); MEAN CORPUSCULAR HEMOGLOBIN 29.6 pg (27.0-33.0); MEAN CORPUSCULAR HGB CONC 31.1 g/dl (32.0-36.5); MEAN CORPUSCULAR VOLUME 95.1 fl (80.0-96.0); PLATELET COUNT, AUTOMATED 248 10^3/uL (150-450); RED BLOOD COUNT 2.87 10^6/uL (4.00-5.40); WHITE BLOOD COUNT 7.2 10^3/uL (4.0-10.0)
[2022-02-01] MEDS ORDERED: ISOVUE-370 76% 100ML VIAL As Ordered ONE (13:04)
[2022-02-01 13:20] LABS: HEMOGLOBIN 8.5 g/dl (12.0-15.5)
[2022-02-01] MEDS ORDERED: LIDOCAINE 1% SDV 30ML VIAL As Ordered ONE (13:34)
[2022-02-01] MEDS ORDERED: THROMBIN 20,000 UNITS KIT As Ordered ONE (13:51)
[2022-02-01] MEDS ORDERED: ceFAZolin 2 GM/D5W 50 ML IV BAG As Ordered ONE (14:18)
[2022-02-01] MEDS ORDERED: PHENYLEPHRINE 10MG/ML 1ML VIAL As Ordered ONE (14:28)
[2022-02-01] MEDS ORDERED: propofoL 200 MG/20 ML VIAL As Ordered ONE (15:27)
[2022-02-01] MEDS ORDERED: GLUCAGON INJ 1MG VIAL SC PRN (16:35)
[2022-02-01] MEDS ORDERED: GLUCOSE 4GM CHEW TABLET PO PRN (16:35)
[2022-02-01] MEDS ORDERED: DEXTROSE 50% 50 ML SYRINGE IV PRN (16:35)
[2022-02-01 16:45] LABS: HEMATOCRIT 30.3 % (36.0-47.0); HEMOGLOBIN 9.5 g/dl (12.0-15.5); MEAN CORPUSCULAR HEMOGLOBIN 29.5 pg (27.0-33.0); MEAN CORPUSCULAR HGB CONC 31.4 g/dl (32.0-36.5); MEAN CORPUSCULAR VOLUME 94.1 fl (80.0-96.0); PLATELET COUNT, AUTOMATED 187 10^3/uL (150-450); RED BLOOD COUNT 3.22 10^6/uL (4.00-5.40)
[2022-02-01 16:54] LABS: INR 1.19; PROTHROMBIN TIME 15.4 SECONDS (12.5-14.5)
[2022-02-01] MEDS: INSULIN LISPRO (NovoLOG) PER UNIT SC SCH ×2 (17:30→20:17)
[2022-02-01 17:36] LABS: CALCIUM LEVEL 7.8 MG/DL (8.3-10.6); CREATININE FOR GFR 0.96 MG/DL (0.55-1.30)
[2022-02-01 18:00] VITALS: BP 121/82
[2022-02-01 19:00] VITALS: BP 104/50
[2022-02-01 20:00] VITALS: BP 105/61
[2022-02-01] MEDS: oxyCODONE 5MG TAB PO PRN (20:00)
[2022-02-01] MEDS: MAG SULF 1GM/100ML (MAG RUN) 1 GM in IV 1 EA IV SCH ×2 (20:20→21:22)
[2022-02-01 21:00] VITALS: BP 153/70
[2022-02-01 22:00] VITALS: BP 136/63
[2022-02-01] MEDS ORDERED: SIMETHICONE 80MG CHEW TAB PO ONE (22:30)
[2022-02-01] MEDS ORDERED: RAMELTEON 8 MG TAB (ROZEREM) PO ONE (22:30)
[2022-02-01] MEDS ORDERED: LIDOCAINE 5% (LIDODERM) PATCH TD ONE (22:30)
[2022-02-01 23:00] VITALS: BP 139/69
[2022-02-02] VITALS (11 sets, daily range): BP systolic 128–194; BP diastolic 60–79
[2022-02-02] MEDS ORDERED: diphenhydrAMINE 25MG CAP PO ONE (00:45)
[2022-02-02] MEDS: oxyCODONE 5MG TAB PO PRN ×4 (02:06→19:56)
[2022-02-02 04:41] LABS: HEMOGLOBIN 9.1 g/dl (12.0-15.5); MEAN CORPUSCULAR HEMOGLOBIN 29.5 pg (27.0-33.0); MEAN CORPUSCULAR HGB CONC 32.5 g/dl (32.0-36.5); MEAN CORPUSCULAR VOLUME 90.9 fl (80.0-96.0); PLATELET COUNT, AUTOMATED 188 10^3/uL (150-450); RED BLOOD COUNT 3.08 10^6/uL (4.00-5.40); WHITE BLOOD COUNT 9.7 10^3/uL (4.0-10.0)
[2022-02-02 05:16] LABS: MAGNESIUM LEVEL 1.6 MG/DL (1.8-2.4)
[2022-02-02 05:18] LABS: CREATININE FOR GFR 1.36 MG/DL (0.55-1.30); GLOMERULAR FILTRATION RATE 40.1 (>39)
[2022-02-02] MEDS ORDERED: NS 1,000 ML IV SCH ×2 (07:25→08:05)
[2022-02-02] MEDS: MAG SULF 1GM/100ML (MAG RUN) 1 GM in IV 1 EA IV SCH ×2 (07:28→08:44)
[2022-02-02] MEDS: INSULIN LISPRO (NovoLOG) PER UNIT SC SCH ×4 (07:29→19:43)
[2022-02-02] MEDS ORDERED: amLODIPine 5 MG TAB PO SCH (09:00)
[2022-02-02] MEDS ORDERED: amLODIPine 5 MG TAB PO ONE ×2 (09:45→21:00)
[2022-02-02] MEDS: CLOPIDOGREL 75 MG TAB PO SCH (10:57)
[2022-02-02] MEDS: ASPIRIN 81MG ENTERIC TABLET PO SCH (10:57)
[2022-02-02] MEDS: VITAMIN D 1,000 INTERNATIONAL UNITS TABLET PO SCH (12:42)
[2022-02-02] MEDS: LEVOTHYROXINE 150MCG TABLET (0.15MG) PO SCH (12:43)
[2022-02-02] MEDS: busPIRone 5 MG TAB PO SCH ×2 (12:43→19:55)
[2022-02-02] MEDS: CYANOCOBALAMIN 500 MCG TAB PO SCH (12:43)
[2022-02-02] MEDS: HEPARIN SOD (PORCINE) 5000UNITS/ML 1ML VIAL/SYRINGE SQ SCH ×2 (12:44→19:55)
[2022-02-02] MEDS ORDERED: ISOSORBIDE MON. (IMDUR) 30MG XR TAB PO SCH (13:55)
[2022-02-02] MEDS ORDERED: cloNIDine 0.1MG TABLET PO SCH (16:00)
[2022-02-02] MEDS: allopurinoL 100 MG TAB PO SCH (19:54)
[2022-02-02] MEDS: cloNIDine 0.1MG TABLET PO SCH (19:55)
[2022-02-02] MEDS ORDERED: **hydrALAZINE HCL** 25 MG TAB PO PRN (20:30)
[2022-02-03] VITALS (26 sets, daily range): BP systolic 131–225; BP diastolic 62–96
[2022-02-03] MEDS: oxyCODONE 5MG TAB PO PRN ×3 (04:32→20:51)
[2022-02-03 04:34] LABS: HEMATOCRIT 24.1 % (36.0-47.0); HEMOGLOBIN 7.9 g/dl (12.0-15.5); MEAN CORPUSCULAR HGB CONC 32.8 g/dl (32.0-36.5); MEAN CORPUSCULAR VOLUME 91.6 fl (80.0-96.0); PLATELET COUNT, AUTOMATED 169 10^3/uL (150-450); RED BLOOD COUNT 2.63 10^6/uL (4.00-5.40); WHITE BLOOD COUNT 7.3 10^3/uL (4.0-10.0)
[2022-02-03 04:57] LABS: MAGNESIUM LEVEL 2.1 MG/DL (1.8-2.4)
[2022-02-03 04:58] LABS: CALCIUM LEVEL 8.3 MG/DL (8.3-10.6); CREATININE FOR GFR 1.33 MG/DL (0.55-1.30); GLOMERULAR FILTRATION RATE 41.2 (>39)
[2022-02-03] MEDS ORDERED: ACETAMINOPHEN 325 MG TAB PO ONE (05:20)
[2022-02-03 05:41] LABS: HEMATOCRIT 24.3 % (36.0-47.0); HEMOGLOBIN 7.9 g/dl (12.0-15.5)
[2022-02-03] MEDS: LEVOTHYROXINE 150MCG TABLET (0.15MG) PO SCH (05:41)
[2022-02-03] MEDS: METOPROLOL SUCC (TopROL XL) 50MG **XL** TAB PO ONE ×2 (07:09→07:11)
[2022-02-03] MEDS: INSULIN LISPRO (NovoLOG) PER UNIT SC SCH ×4 (07:48→20:44)
[2022-02-03] MEDS: HEPARIN SOD (PORCINE) 5000UNITS/ML 1ML VIAL/SYRINGE SQ SCH ×2 (08:15→21:06)
[2022-02-03] MEDS: CYANOCOBALAMIN 500 MCG TAB PO SCH (08:16)
[2022-02-03] MEDS: CLOPIDOGREL 75 MG TAB PO SCH (08:16)
[2022-02-03] MEDS: ASPIRIN 81MG ENTERIC TABLET PO SCH (08:16)
[2022-02-03] MEDS: amLODIPine 5 MG TAB PO SCH (08:17)
[2022-02-03] MEDS: VITAMIN D 1,000 INTERNATIONAL UNITS TABLET PO SCH (08:18)
[2022-02-03] MEDS: allopurinoL 100 MG TAB PO SCH ×2 (08:18→21:05)
[2022-02-03] MEDS: cloNIDine 0.1MG TABLET PO SCH ×3 (08:18→21:06)
[2022-02-03] MEDS: busPIRone 5 MG TAB PO SCH ×2 (08:18→21:05)
[2022-02-03] MEDS: **hydrALAZINE** 50 MG TAB PO PRN (15:53)
[2022-02-04] VITALS: BP 157/79
[2022-02-04] MEDS: oxyCODONE 5MG TAB PO PRN (02:37)
[2022-02-04 04:00] VITALS: BP 190/75
[2022-02-04 04:43] LABS: HEMATOCRIT 28.2 % (36.0-47.0); HEMOGLOBIN 9.1 g/dl (12.0-15.5); MEAN CORPUSCULAR HEMOGLOBIN 30.5 pg (27.0-33.0); MEAN CORPUSCULAR HGB CONC 32.3 g/dl (32.0-36.5); MEAN CORPUSCULAR VOLUME 94.6 fl (80.0-96.0); PLATELET COUNT, AUTOMATED 172 10^3/uL (150-450); RED BLOOD COUNT 2.98 10^6/uL (4.00-5.40)
[2022-02-04] MEDS: **hydrALAZINE** 50 MG TAB PO PRN (04:45)
[2022-02-04 05:14] LABS: CALCIUM LEVEL 8.7 MG/DL (8.3-10.6); CREATININE FOR GFR 0.99 MG/DL (0.55-1.30); GLOMERULAR FILTRATION RATE 57.9 (>39)
[2022-02-04] MEDS: LEVOTHYROXINE 150MCG TABLET (0.15MG) PO SCH (06:25)
[2022-02-04] MEDS: INSULIN LISPRO (NovoLOG) PER UNIT SC SCH ×2 (07:38→12:14)
[2022-02-04 07:45] VITALS: BP 151/63
[2022-02-04] MEDS: HEPARIN SOD (PORCINE) 5000UNITS/ML 1ML VIAL/SYRINGE SQ SCH (08:41)
[2022-02-04] MEDS: CLOPIDOGREL 75 MG TAB PO SCH (08:41)
[2022-02-04] MEDS: allopurinoL 100 MG TAB PO SCH (08:41)
[2022-02-04] MEDS: cloNIDine 0.1MG TABLET PO SCH (08:42)
[2022-02-04] MEDS: ASPIRIN 81MG ENTERIC TABLET PO SCH (08:42)
[2022-02-04] MEDS: busPIRone 5 MG TAB PO SCH (08:42)
[2022-02-04] MEDS: CYANOCOBALAMIN 500 MCG TAB PO SCH (08:42)
[2022-02-04] MEDS: VITAMIN D 1,000 INTERNATIONAL UNITS TABLET PO SCH (08:42)
[2022-02-04] MEDS: amLODIPine 5 MG TAB PO SCH (08:43)
[2022-02-04] MEDS ORDERED: METOPROLOL SUCC (TopROL XL) 50MG **XL** TAB PO SCH (09:00)
[2022-02-04] MEDS ORDERED: DOCUSATE SODIUM 100MG CAPSULE PO SCH (11:15)
[2022-02-04] MEDS ORDERED: SENNA 8.6 MG TAB (SENOKOT) PO PRN (11:15)
[2022-02-04] MEDS ORDERED: PERCOCET 5MG/325MG TAB PO PRN ×2 (11:15)
[2022-02-04] MEDS ORDERED: MAGNESIUM OXIDE 400MG TAB (MAG-OX) PO SCH (11:15)
[2022-02-04] MEDS ORDERED: PILL CUTTER 1 EACH XX PRN (11:30)
[2022-02-04] MEDS ORDERED: SENN18TA PO (11:56)
[2022-02-04] MEDS ORDERED: METO1TAB7 PO (11:56)
[2022-02-04] MEDS ORDERED: PERCOCET PO (11:56)
[2022-02-04] MEDS ORDERED: COLA100C5 PO (11:56)
[2022-02-04] MEDS ORDERED: METF10004 PO (11:56)
[2022-02-04] MEDS ORDERED: CLONI1TA PO (11:56)
[2022-02-04] MEDS ORDERED: MAGN400T2 PO (11:56)
[2022-02-04] MEDS ORDERED: LIPI20TA PO (11:56)
[2022-02-04] MEDS ORDERED: LISI10TA22 PO (11:56)
[2022-02-04 12:46] VITALS: BP 160/79
[2022-02-04 13:51] VITALS: BP 138/62
[2022-02-04] MEDS ORDERED: **hydrALAZINE** 50 MG TAB PO SCH (14:00)
== END 2022-02-04 15:00 | disposition home or self-care (01) | DRG 674 ==
LOC: M SDC 07:20 → M ED INP 13:54 → INTOOBSV 13:54 → OBSVTOIN 16:35 → M ICU 18:01
PROVIDERS: ADMIT Surgery Vascular Surgery; ATTEND Surgery Vascular Surgery
PROC: 047H0DZ Dilation of Right External Iliac Artery with Intraluminal Device, Open Approach (ICD-10-PCS; 2022-02-01)
PROC: 0Y370ZZ Control Bleeding in Right Femoral Region, Open Approach (ICD-10-PCS; 2022-02-01)
PROC: 30233N1 Transfusion of Nonautologous Red Blood Cells into Peripheral Vein, Percutaneous Approach (ICD-10-PCS; 2022-02-01)
PROC: 047A3DZ Dilation of Left Renal Artery with Intraluminal Device, Percutaneous Approach (ICD-10-PCS; principal; 2022-02-01 09:00)
DX: I70.1 Atherosclerosis of renal artery (principal); I97.618 Postprocedural hemorrhage of a circulatory system organ or structure following other circulatory system procedure; D62 Acute posthemorrhagic anemia; N17.9 Acute kidney failure, unspecified; E11.22 Type 2 diabetes mellitus with diabetic chronic kidney disease; I12.9 Hypertensive chronic kidney disease with stage 1 through stage 4 chronic kidney disease, or unspecified chronic kidney disease; M10.9 Gout, unspecified; E03.9 Hypothyroidism, unspecified; E66.9 Obesity, unspecified; I95.81 Postprocedural hypotension; E55.9 Vitamin D deficiency, unspecified; F39 Unspecified mood [affective] disorder; C50.912 Malignant neoplasm of unspecified site of left female breast; N18.9 Chronic kidney disease, unspecified

== ENCOUNTER → 2022-02-07 | Outpatient (CLI) | payer MEDICARE ==
[~2022-02-07] MED LIST changes: +CLOP75TA99 PO; +COLA100C5 PO; +LIPI20TA PO; +MAGN400T2 PO; +METO1TAB7 PO; +PERCOCET PO; +SENN18TA PO; -ceFAZolin SOD 2 GM in IV 1 EA IV ONE
== END ==
LOC: M PLARAD 12:40
PROVIDERS: ATTEND Surgery
DX: C50.312 Malignant neoplasm of lower-inner quadrant of left female breast (principal); C77.9 Secondary and unspecified malignant neoplasm of lymph node, unspecified; C79.2 Secondary malignant neoplasm of skin

== ENCOUNTER → 2022-02-17 | Outpatient (CLI) | payer MEDICARE ==
[~2022-02-17] MED LIST changes: +LISI20TA33 PO; +VITA200048 PO
== END ==
LOC: M CARPUL 10:58
PROVIDERS: ATTEND Internal Medicine Hematology & Oncology
DX: I42.7 Cardiomyopathy due to drug and external agent (principal); I35.8 Other nonrheumatic aortic valve disorders; I36.1 Nonrheumatic tricuspid (valve) insufficiency; I27.20 Pulmonary hypertension, unspecified

== ENCOUNTER → 2022-02-18 | Outpatient (CLI) | payer MEDICARE ==
[~2022-02-18] MED LIST changes: +ONDA-84 PO; +PROC10TA5 PO
== END ==
LOC: M ONCR 11:14
PROVIDERS: ATTEND General Practice
DX: C50.312 Malignant neoplasm of lower-inner quadrant of left female breast (principal); D51.9 Vitamin B12 deficiency anemia, unspecified; E03.9 Hypothyroidism, unspecified; E11.9 Type 2 diabetes mellitus without complications; E55.9 Vitamin D deficiency, unspecified; E66.9 Obesity, unspecified; E78.5 Hyperlipidemia, unspecified; I12.9 Hypertensive chronic kidney disease with stage 1 through stage 4 chronic kidney disease, or unspecified chronic kidney disease; I27.20 Pulmonary hypertension, unspecified; K57.90 Diverticulosis of intestine, part unspecified, without perforation or abscess without bleeding; N18.9 Chronic kidney disease, unspecified; Z79.02 Long term (current) use of antithrombotics/antiplatelets; Z79.82 Long term (current) use of aspirin; Z79.84 Long term (current) use of oral hypoglycemic drugs; Z79.890 Hormone replacement therapy; Z79.899 Other long term (current) drug therapy; Z80.3 Family history of malignant neoplasm of breast; Z83.3 Family history of diabetes mellitus; Z87.891 Personal history of nicotine dependence; Z88.2 Allergy status to sulfonamides; Z86.010 Personal history of colon polyps

== ENCOUNTER → 2022-02-25 | Outpatient (CLI) | payer MEDICARE ==
[~2022-02-25] MED LIST changes: -LISI20TA33 PO; -ONDA-84 PO; -PROC10TA5 PO
== END ==
LOC: M WHC 12:30
PROVIDERS: ATTEND Nurse Practitioner Family
DX: R22.41 Localized swelling, mass and lump, right lower limb (principal); M79.661 Pain in right lower leg

== ENCOUNTER → 2022-03-07 | Outpatient (CLI) | payer MEDICARE ==
[~2022-03-07] MED LIST changes: +LISI20TA33 PO; +ONDA-84 PO; +PROC10TA5 PO
== END ==
LOC: M LABSMTC 11:49
PROVIDERS: ATTEND Anesthesiology
DX: Z01.812 Encounter for preprocedural laboratory examination (principal); Z20.822 Contact with and (suspected) exposure to COVID-19

== ENCOUNTER → 2022-03-07 | Outpatient (REF) | payer MEDICARE ==
[2022-03-07 21:12] LABS: APPEARANCE, URINE MANUAL CLEAR (CLEAR); COLOR, URINE MANUAL YELLOW (YELLOW)
[2022-03-07 21:13] LABS: BILIRUBIN, URINE MANUAL NEGATIVE (NEGATIVE); BLOOD URINE MANUAL NEGATIVE (NEGATIVE); GLUCOSE, URINE (UA) MANUAL NEGATIVE (NEGATIVE); KETONE, URINE MANUAL NEGATIVE (NEGATIVE); LEUKOCYTE ESTERASE, URINE MAN TRACE (NEGATIVE); NITRITE, URINE MANUAL NEGATIVE (NEGATIVE); PROTEIN, URINE MANUAL 3+ mg/dL (NEGATIVE); UROBILINOGEN, URINE MANUAL NORMAL (NORMAL)
[2022-03-07 21:42] LABS: BACTERIA, URINE SMALL AMOUNT; HYALINE CAST, URINE NONE SEEN /lpf (0-1); RBC, URINE 0-1 /hpf (0-3); SQUAMOUS EPITHELIAL CELL URINE SMALL AMOUNT /hpf (SMALL AMT)
== END ==
LOC: M SFHCADAM 15:58
PROVIDERS: ATTEND Physician Assistant Medical
DX: N39.46 Mixed incontinence (principal)

== ENCOUNTER → 2022-03-29 | Outpatient (REF) | payer MEDICARE ==
[~2022-03-29] MED LIST changes: +ATEN50TA2 PO; +BETA5OI TOP; +CLOT1CRE56 TOP; +FLUC10TA PO; +LEVO1TAB40 PO; +METF-877 PO; +TOLT2TAB12 PO; +VALA1TAB5 PO; +med rec comment
== END ==
LOC: M SFHCADAM 12:44
PROVIDERS: ATTEND Physician Assistant Medical
DX: N90.9 Noninflammatory disorder of vulva and perineum, unspecified (principal)

== ENCOUNTER 2022-04-02 02:35 | Inpatient (IN) | payer MEDICARE ==
[~2022-04-02] VITALS: Ht 157.5 cm; Wt 72.8 kg
[~2022-04-02 02:35] MED LIST changes: -ATEN50TA2 PO; -CLOT1CRE56 TOP; -FLUC10TA PO; -LEVO1TAB40 PO; -METF-877 PO; -VALA1TAB5 PO; -med rec comment
[2022-04-02] MEDS ORDERED: hydrALAZINE 20MG/ML 1ML VIAL IV ONE (03:00)
[2022-04-02 03:46] LABS: HEMOGLOBIN 11.1 g/dl (12.0-15.5); MEAN CORPUSCULAR HEMOGLOBIN 30.9 pg (27.0-33.0); MEAN CORPUSCULAR HGB CONC 31.7 g/dl (32.0-36.5); MEAN CORPUSCULAR VOLUME 97.5 fl (80.0-96.0); PLATELET COUNT, AUTOMATED 364 10^3/uL (150-450); RED BLOOD COUNT 3.59 10^6/uL (4.00-5.40); WHITE BLOOD COUNT 18.5 10^3/uL (4.0-10.0)
[2022-04-02 03:51] LABS: PARTIAL THROMBOPLASTIN TIME 35.7 SECONDS (24.8-34.2)
[2022-04-02 04:02] LABS: ALBUMIN 3.3 G/DL (3.2-5.2); ALKALINE PHOSPHATASE 149 U/L (46-116); ALT/SGPT 10 U/L (7.0-40); AST/SGOT 29 U/L (<34); BILIRUBIN,DIRECT < 0.1 MG/DL (<0.4); BILIRUBIN,TOTAL < 0.2 MG/DL (0.3-1.2); BLOOD UREA NITROGEN 32 MG/DL (9-23); CALCIUM LEVEL 9.1 MG/DL (8.3-10.6); CARBON DIOXIDE LEVEL 22 MMOL/L (20-31); CHLORIDE LEVEL 105 MMOL/L (98-107); CREATININE FOR GFR 0.97 MG/DL (0.55-1.30); GLOMERULAR FILTRATION RATE 59.3 (>39); GLUCOSE, FASTING 163 MG/DL (74-106); MAGNESIUM LEVEL 1.1 MG/DL (1.8-2.4); POTASSIUM SERUM 5.8 MMOL/L (3.5-5.1); SODIUM LEVEL 140 MMOL/L (136-145); TOTAL PROTEIN 7.5 G/DL (5.7-8.2)
[2022-04-02] MEDS ORDERED: ACETAMINOPHEN TAB 650MG DOSE (2X325MG) PO ONE (04:20)
[2022-04-02 04:31] LABS: ANISOCYTOSIS 1+; BASOPHILS 3 % (0-1); LYMPHOCYTES 10 % (16-44); METAMYELOCYTES 3 % (0-0); MONOCYTES 2 % (0-5); MYELOCYTES 10 % (0-0); NEUTROPHILS 69 % (28-66); PLATELET ESTIMATE NORMAL (NORMAL); PROMYELOCYTES 1 % (0-0)
[2022-04-02 04:32] LABS: HYPOCHROMASIA 1+
[2022-04-02] MEDS ORDERED: MAG SULF 1GM/100ML (MAG RUN) 1 GM in IV 1 EA IV ONE (05:40)
[2022-04-02] MEDS ORDERED: PIPERACILLIN/TAZOBACTAM SOD 4.5 GM in D5W MINI-BAG PLUS 50 ML IV ONE (05:40)
[2022-04-02] MEDS ORDERED: FLUCONAZOLE 100 MG TAB PO ONE (06:20)
[2022-04-02] MEDS ORDERED: **hydrALAZINE** 50 MG TAB PO ONE (06:20)
[2022-04-02] MEDS ORDERED: diphenhydrAMINE 50MG/ML VIAL IV STA (06:25)
[2022-04-02 06:35] LABS: INR 1.09; PROTHROMBIN TIME 14.3 SECONDS (12.5-14.5)
[2022-04-02] MEDS ORDERED: VALA1TAB5 PO (06:35)
[2022-04-02] MEDS ORDERED: ISOS30TAB PO (06:35)
[2022-04-02] MEDS ORDERED: CLOP75TA99 PO (06:35)
[2022-04-02] MEDS ORDERED: HYDR100T PO (06:35)
[2022-04-02] MEDS ORDERED: METO1TAB7 PO (06:35)
[2022-04-02] MEDS ORDERED: METF-877 PO (06:35)
[2022-04-02] MEDS ORDERED: med rec comment (06:36)
[2022-04-02] MEDS ORDERED: HOME MED LIST COMPLETE! XX SCH (06:40)
[2022-04-02] MEDS ORDERED: cloNIDine 0.2 MG TAB PO ONE (07:00)
[2022-04-02 07:26] LABS: RSV AMPLIFICATION NEGATIVE (NEGATIVE)
[2022-04-02 07:45] LABS: HEMOGLOBIN 10.4 g/dl (12.0-15.5); MEAN CORPUSCULAR HEMOGLOBIN 30.7 pg (27.0-33.0); MEAN CORPUSCULAR HGB CONC 31.5 g/dl (32.0-36.5); MEAN CORPUSCULAR VOLUME 97.3 fl (80.0-96.0); PLATELET COUNT, AUTOMATED 301 10^3/uL (150-450); RED BLOOD COUNT 3.39 10^6/uL (4.00-5.40); WHITE BLOOD COUNT 14.8 10^3/uL (4.0-10.0)
[2022-04-02] MEDS ORDERED: PATIROMER SORBITEX CALCIUM 8.4 GM POWDER PACKET (VELTASSA) PO ONE ×2 (08:00→12:00)
[2022-04-02] MEDS ORDERED: CALCIUM GLUCONATE 1,000 MG in D5W MINI-BAG PLUS 100 ML IV ONE ×2 (08:00→18:00)
[2022-04-02 08:11] LABS: ERYTHROCYTE SEDIMENTATION RATE 80 mm/hr (0-30)
[2022-04-02 08:12] LABS: BLOOD UREA NITROGEN 29 MG/DL (9-23); CALCIUM LEVEL 8.7 MG/DL (8.3-10.6); CARBON DIOXIDE LEVEL 24 MMOL/L (20-31); CHLORIDE LEVEL 106 MMOL/L (98-107); CREATININE FOR GFR 0.95 MG/DL (0.55-1.30); GLOMERULAR FILTRATION RATE > 60.0 (>39); GLUCOSE, FASTING 186 MG/DL (74-106); POTASSIUM SERUM 5.2 MMOL/L (3.5-5.1); SODIUM LEVEL 139 MMOL/L (136-145)
[2022-04-02 08:23] LABS: LYMPHOCYTES 4 % (16-44); METAMYELOCYTES 1 % (0-0); MONOCYTES 5 % (0-5); MYELOCYTES 2 % (0-0); NEUTROPHILS 85 % (28-66)
[2022-04-02 08:25] LABS: ANISOCYTOSIS 1+; POIKILOCYTOSIS 1+
[2022-04-02 08:26] LABS: POLYCHROMASIA 1+; SCHISTOCYTES 1+
[2022-04-02 08:27] LABS: PLATELET ESTIMATE NORMAL (NORMAL)
[2022-04-02] MEDS ORDERED: METOPROLOL SUCC (TopROL XL) 50MG **XL** TAB PO SCH (09:00)
[2022-04-02] MEDS ORDERED: ISOSORBIDE DIN. (ISORDIL) 30 MG TAB PO SCH (09:00)
[2022-04-02 10:00] VITALS: BP 140/62
[2022-04-02] MEDS ORDERED: ACETAMINOPHEN 325 MG TAB PO PRN (10:15)
[2022-04-02] MEDS ORDERED: PROCHLORPERAZINE 5MG TAB PO PRN (10:15)
[2022-04-02] MEDS ORDERED: ONDANSETRON 4MG TAB PO PRN (10:15)
[2022-04-02] MEDS ORDERED: FIORICET TAB PO ONE (11:00)
[2022-04-02] MEDS: LevoFLOXacin IV 750 MG in IV 1 EA IV SCH (11:28)
[2022-04-02] MEDS: valACYclovir HCL 500 MG TAB PO SCH ×2 (11:32→20:18)
[2022-04-02] MEDS: ATORVASTATIN 20 MG TAB PO SCH (11:32)
[2022-04-02] MEDS: ASPIRIN 81MG ENTERIC TABLET PO SCH (11:32)
[2022-04-02] MEDS: LEVOTHYROXINE 150MCG TABLET (0.15MG) PO SCH (11:33)
[2022-04-02] MEDS: busPIRone 5 MG TAB PO SCH ×2 (11:34→20:18)
[2022-04-02] MEDS: CYANOCOBALAMIN 500 MCG TAB PO SCH (11:41)
[2022-04-02] MEDS: allopurinoL 100 MG TAB PO SCH ×2 (11:41→20:18)
[2022-04-02] MEDS: CLOPIDOGREL 75 MG TAB PO SCH (11:41)
[2022-04-02 12:00] VITALS: BP 176/73
[2022-04-02] MEDS ORDERED: cefTRIAXone SOD 2 GM in D5W MINI-BAG PLUS 50 ML IV SCH (12:00)
[2022-04-02] MEDS ORDERED: cloNIDine 0.1MG TABLET PO SCH (13:00)
[2022-04-02] MEDS: CLOTRIMAZOLE 1% TOPICAL CREAM 30GM TOP SCH ×3 (13:27→20:21)
[2022-04-02] MEDS: TOLTERODINE (DETROL) 2 MG TAB PO SCH ×2 (13:40→20:17)
[2022-04-02] MEDS ORDERED: FIORICET TAB PO PRN (14:00)
[2022-04-02 16:00] VITALS: BP 102/58
[2022-04-02] MEDS ORDERED: **hydrALAZINE** 50 MG TAB PO SCH (16:00)
[2022-04-02] MEDS ORDERED: SENOKOT S TAB PO PRN (17:55)
[2022-04-02] MEDS ORDERED: diphenhydrAMINE CREAM 30GM TOP PRN (17:55)
[2022-04-02] MEDS ORDERED: metFORMIN (GLUCOPHAGE) 1000MG TABLET PO SCH (18:00)
[2022-04-02] MEDS: diphenhydrAMINE 25MG CAP PO PRN (18:20)
[2022-04-02 20:13] VITALS: BP 135/87
[2022-04-02] MEDS: ENOXAPARIN 40MG/0.4ML SYRINGE (J1650 PER 10MG) SC SCH (20:18)
[2022-04-03] VITALS (7 sets, daily range): BP systolic 144–180; BP diastolic 69–84
[2022-04-03 05:17] LABS: HEMATOCRIT 31.7 % (36.0-47.0); HEMOGLOBIN 9.9 g/dl (12.0-15.5); MEAN CORPUSCULAR HEMOGLOBIN 30.7 pg (27.0-33.0); MEAN CORPUSCULAR HGB CONC 31.2 g/dl (32.0-36.5); MEAN CORPUSCULAR VOLUME 98.4 fl (80.0-96.0); PLATELET COUNT, AUTOMATED 303 10^3/uL (150-450); RED BLOOD COUNT 3.22 10^6/uL (4.00-5.40); WHITE BLOOD COUNT 14.3 10^3/uL (4.0-10.0)
[2022-04-03] MEDS: LEVOTHYROXINE 150MCG TABLET (0.15MG) PO SCH (05:17)
[2022-04-03] MEDS: diphenhydrAMINE 25MG CAP PO PRN ×3 (05:18→21:21)
[2022-04-03 05:41] LABS: CALCIUM LEVEL 9.5 MG/DL (8.3-10.6); CREATININE FOR GFR 1.16 MG/DL (0.55-1.30); GLOMERULAR FILTRATION RATE 48.2 (>39); POTASSIUM SERUM 5.6 MMOL/L (3.5-5.1)
[2022-04-03 06:07] LABS: BASOPHILS 2 % (0-1); HYPOCHROMASIA 1+; LYMPHOCYTES 2 % (16-44); METAMYELOCYTES 2 % (0-0); MONOCYTES 1 % (0-5); MYELOCYTES 7 % (0-0); NEUTROPHILS 82 % (28-66); PLATELET ESTIMATE NORMAL (NORMAL)
[2022-04-03] MEDS ORDERED: PATIROMER SORBITEX CALCIUM 8.4 GM POWDER PACKET (VELTASSA) PO ONE ×2 (07:00→10:00)
[2022-04-03] MEDS: CLOPIDOGREL 75 MG TAB PO SCH (08:44)
[2022-04-03] MEDS: CYANOCOBALAMIN 500 MCG TAB PO SCH (08:45)
[2022-04-03] MEDS: TOLTERODINE (DETROL) 2 MG TAB PO SCH ×2 (08:45→20:19)
[2022-04-03] MEDS: ATORVASTATIN 20 MG TAB PO SCH (08:45)
[2022-04-03] MEDS: busPIRone 5 MG TAB PO SCH ×2 (08:45→20:18)
[2022-04-03] MEDS: ASPIRIN 81MG ENTERIC TABLET PO SCH (08:45)
[2022-04-03] MEDS: allopurinoL 100 MG TAB PO SCH ×2 (08:45→20:19)
[2022-04-03] MEDS: valACYclovir HCL 500 MG TAB PO SCH ×2 (08:45→20:19)
[2022-04-03] MEDS: FLUCONAZOLE 50MG TABLET PO SCH (08:45)
[2022-04-03] MEDS: CLOTRIMAZOLE 1% TOPICAL CREAM 30GM TOP SCH ×4 (08:47→20:17)
[2022-04-03] MEDS ORDERED: CALCIUM GLUCONATE 1,000 MG in D5W MINI-BAG PLUS 100 ML IV ONE (09:00)
[2022-04-03] MEDS ORDERED: SODIUM BICARBONATE 150 MEQ in STERILE WATER LITER BAG 1,000 ML IV SCH (11:00)
[2022-04-03] MEDS ORDERED: METOPROLOL SUCC (TopROL XL) 50MG **XL** TAB PO ONE (16:40)
[2022-04-03 16:53] LABS: CALCIUM LEVEL 9.9 MG/DL (8.3-10.6); CREATININE FOR GFR 1.25 MG/DL (0.55-1.30); GLOMERULAR FILTRATION RATE 44.2 (>39); POTASSIUM SERUM 4.9 MMOL/L (3.5-5.1)
[2022-04-03] MEDS: **hydrALAZINE HCL** 25 MG TAB PO SCH (17:10)
[2022-04-03] MEDS: ENOXAPARIN 40MG/0.4ML SYRINGE (J1650 PER 10MG) SC SCH (20:18)
[2022-04-04] MEDS: **hydrALAZINE HCL** 25 MG TAB PO SCH ×2 (00:05→05:08)
[2022-04-04 00:34] LABS: CALCIUM LEVEL 9.6 MG/DL (8.3-10.6); CREATININE FOR GFR 1.17 MG/DL (0.55-1.30); GLOMERULAR FILTRATION RATE 47.7 (>39); POTASSIUM SERUM 4.3 MMOL/L (3.5-5.1)
[2022-04-04 05:00] VITALS: BP 198/90
[2022-04-04] MEDS: LEVOTHYROXINE 150MCG TABLET (0.15MG) PO SCH (05:08)
[2022-04-04 05:29] LABS: HEMATOCRIT 34.3 % (36.0-47.0); HEMOGLOBIN 10.9 g/dl (12.0-15.5); MEAN CORPUSCULAR HEMOGLOBIN 30.7 pg (27.0-33.0); MEAN CORPUSCULAR HGB CONC 31.8 g/dl (32.0-36.5); MEAN CORPUSCULAR VOLUME 96.6 fl (80.0-96.0); PLATELET COUNT, AUTOMATED 307 10^3/uL (150-450); RED BLOOD COUNT 3.55 10^6/uL (4.00-5.40); WHITE BLOOD COUNT 10.4 10^3/uL (4.0-10.0)
[2022-04-04 05:45] VITALS: BP 168/72
[2022-04-04 05:53] LABS: CALCIUM LEVEL 9.7 MG/DL (8.3-10.6); CREATININE FOR GFR 1.03 MG/DL (0.55-1.30); GLOMERULAR FILTRATION RATE 55.3 (>39); MAGNESIUM LEVEL 1.2 MG/DL (1.8-2.4); POTASSIUM SERUM 4.1 MMOL/L (3.5-5.1)
[2022-04-04 05:56] LABS: ANISOCYTOSIS 1+; BASOPHILS 1 % (0-1); EOSINOPHILS 1 % (0-3); LYMPHOCYTES 10 % (16-44); METAMYELOCYTES 3 % (0-0); MONOCYTES 7 % (0-5); MYELOCYTES 1 % (0-0); NEUTROPHILS 71 % (28-66); PLATELET ESTIMATE NORMAL (NORMAL)
[2022-04-04 05:57] LABS: MICROCYTOSIS 1+
[2022-04-04] MEDS ORDERED: atenoloL 50 MG TAB PO ONE (08:00)
[2022-04-04 08:01] VITALS: BP 136/63
[2022-04-04] MEDS ORDERED: LEVO1TAB40 PO (08:19)
[2022-04-04] MEDS ORDERED: FLUC10TA PO (08:19)
[2022-04-04] MEDS ORDERED: ATEN50TA2 PO (08:19)
[2022-04-04] MEDS ORDERED: CLOT1CRE56 TOP (08:19)
[2022-04-04] MEDS: MAG SULF 1GM/100ML (MAG RUN) 1 GM in IV 1 EA IV SCH ×2 (08:58→10:10)
[2022-04-04] MEDS: TOLTERODINE (DETROL) 2 MG TAB PO SCH (08:59)
[2022-04-04] MEDS: ASPIRIN 81MG ENTERIC TABLET PO SCH (08:59)
[2022-04-04] MEDS: CLOPIDOGREL 75 MG TAB PO SCH (08:59)
[2022-04-04] MEDS: FLUCONAZOLE 50MG TABLET PO SCH (08:59)
[2022-04-04] MEDS: CYANOCOBALAMIN 500 MCG TAB PO SCH (08:59)
[2022-04-04 09:00] VITALS: BP 136/63
[2022-04-04] MEDS ORDERED: atenoloL 50 MG TAB PO SCH (09:00)
[2022-04-04] MEDS: busPIRone 5 MG TAB PO SCH (09:01)
[2022-04-04] MEDS: ATORVASTATIN 20 MG TAB PO SCH (09:01)
[2022-04-04] MEDS: valACYclovir HCL 500 MG TAB PO SCH (09:02)
[2022-04-04] MEDS: allopurinoL 100 MG TAB PO SCH (09:12)
[2022-04-04] MEDS: CLOTRIMAZOLE 1% TOPICAL CREAM 30GM TOP SCH (09:14)
[2022-04-04] MEDS: LevoFLOXacin IV 750 MG in IV 1 EA IV SCH (11:08)
[2022-04-05] MEDS ORDERED: atenoloL 50 MG TAB PO SCH (09:00)
== END 2022-04-04 14:52 | disposition home health service (06) | DRG 305 ==
LOC: EDBD 02:35 → M ED 02:35 → M ED INP 07:20 → ENRESERV 08:21 → M PCU 09:42
PROVIDERS: ADMIT General Practice; ATTEND General Practice
DX: I16.0 Hypertensive urgency (principal); C50.912 Malignant neoplasm of unspecified site of left female breast; I15.0 Renovascular hypertension; N76.0 Acute vaginitis; E11.22 Type 2 diabetes mellitus with diabetic chronic kidney disease; E78.5 Hyperlipidemia, unspecified; E03.9 Hypothyroidism, unspecified; E55.9 Vitamin D deficiency, unspecified; I27.20 Pulmonary hypertension, unspecified; N18.30 Chronic kidney disease, stage 3 unspecified; E66.01 Morbid (severe) obesity due to excess calories; E53.8 Deficiency of other specified B group vitamins; E61.1 Iron deficiency; E87.5 Hyperkalemia; R51.9 Headache, unspecified; Z90.49 Acquired absence of other specified parts of digestive tract; Z87.891 Personal history of nicotine dependence; I35.8 Other nonrheumatic aortic valve disorders; B96.5 Pseudomonas (aeruginosa) (mallei) (pseudomallei) as the cause of diseases classified elsewhere; Z20.822 Contact with and (suspected) exposure to COVID-19; Z79.82 Long term (current) use of aspirin; Z79.890 Hormone replacement therapy; Z79.84 Long term (current) use of oral hypoglycemic drugs; Z79.899 Other long term (current) drug therapy; Z88.1 Allergy status to other antibiotic agents; Z88.2 Allergy status to sulfonamides; Z88.8 Allergy status to other drugs, medicaments and biological substances

== ENCOUNTER → 2022-04-05 | Outpatient (POV) | payer MEDICARE ==
[~2022-04-05] VITALS: Ht 157.5 cm; Wt 74.0 kg
[~2022-04-05] MED LIST changes: +ATEN50TA2 PO; +CLOT1CRE56 TOP; +FLUC10TA PO; +LEVO1TAB40 PO; +METF-877 PO; +VALA1TAB5 PO; +med rec comment
[2022-04-05 14:25] VITALS: BP 157/73
== END ==
LOC: M IRPOV 14:12
PROVIDERS: ATTEND Radiology Diagnostic Radiology
DX: Z45.2 Encounter for adjustment and management of vascular access device (principal); Z88.1 Allergy status to other antibiotic agents; Z88.2 Allergy status to sulfonamides

== ENCOUNTER → 2022-04-06 | Outpatient (REF) | payer MEDICARE ==
[2022-04-06 13:00] LABS: HEMATOCRIT 34.4 % (36.0-47.0); HEMOGLOBIN 10.8 g/dl (12.0-15.5); MEAN CORPUSCULAR HEMOGLOBIN 31.1 pg (27.0-33.0); MEAN CORPUSCULAR HGB CONC 31.4 g/dl (32.0-36.5); MEAN CORPUSCULAR VOLUME 99.1 fl (80.0-96.0); PLATELET COUNT, AUTOMATED 350 10^3/uL (150-450); RED BLOOD COUNT 3.47 10^6/uL (4.00-5.40); WHITE BLOOD COUNT 10.8 10^3/uL (4.0-10.0)
[2022-04-06 13:30] LABS: CALCIUM LEVEL 8.9 MG/DL (8.3-10.6); CREATININE FOR GFR 1.44 MG/DL (0.55-1.30); GLOMERULAR FILTRATION RATE 37.6 (>39); POTASSIUM SERUM 4.8 MMOL/L (3.5-5.1)
[2022-04-06 13:55] LABS: BASOPHILS 3 % (0-1); LYMPHOCYTES 4 % (16-44); METAMYELOCYTES 1 % (0-0); MONOCYTES 4 % (0-5); MYELOCYTES 1 % (0-0); NEUTROPHILS 82 % (28-66)
[2022-04-06 13:56] LABS: ANISOCYTOSIS 1+
[2022-04-06 13:57] LABS: PLATELET ESTIMATE NORMAL (NORMAL)
== END ==
LOC: M SFHCADAM 08:43
PROVIDERS: ATTEND Physician Assistant
DX: I10 Essential (primary) hypertension (principal)

== ENCOUNTER → 2022-04-14 | Outpatient (REF) | payer MEDICARE ==
[~2022-04-14] MED LIST changes: +LEVO1TAB39 PO; +VELT1POW PO
[2022-04-15 12:58] LABS: HEMATOCRIT 32.5 % (36.0-47.0); MEAN CORPUSCULAR HEMOGLOBIN 31.1 pg (27.0-33.0); MEAN CORPUSCULAR HGB CONC 30.8 g/dl (32.0-36.5); MEAN CORPUSCULAR VOLUME 100.9 fl (80.0-96.0); PLATELET COUNT, AUTOMATED 213 10^3/uL (150-450); RED BLOOD COUNT 3.22 10^6/uL (4.00-5.40); WHITE BLOOD COUNT 1.5 10^3/uL (4.0-10.0)
[2022-04-15 13:30] LABS: CALCIUM LEVEL 9.8 MG/DL (8.3-10.6); CREATININE FOR GFR 1.28 MG/DL (0.55-1.30)
[2022-04-15 13:31] LABS: POTASSIUM SERUM 6.5 MMOL/L (3.5-5.1)
[2022-04-15 13:59] LABS: ERYTHROCYTE SEDIMENTATION RATE 75 mm/hr (0-30)
[2022-04-15 14:14] LABS: EOSINOPHILS 12 % (0-3); LYMPHOCYTES 35 % (16-44); MONOCYTES 4 % (0-5); NEUTROPHILS 43 % (28-66)
[2022-04-15 14:15] LABS: ANISOCYTOSIS 1+; PLATELET ESTIMATE NORMAL (NORMAL); POIKILOCYTOSIS 1+
== END ==
LOC: M SFHCADAM 15:21
PROVIDERS: ATTEND Physician Assistant
DX: N90.9 Noninflammatory disorder of vulva and perineum, unspecified (principal); R21 Rash and other nonspecific skin eruption

== ENCOUNTER 2022-04-15 19:52 | Emergency (ER) | payer MEDICARE ==
[~2022-04-15] VITALS: Ht 157.5 cm; Wt 71.9 kg
[~2022-04-15 19:52] MED LIST changes: -LEVO1TAB39 PO; -VELT1POW PO
[2022-04-15] MEDS ORDERED: LEVO1TAB39 PO (20:11)
[2022-04-15] MEDS ORDERED: MAGN400T2 PO (20:11)
[2022-04-15] MEDS ORDERED: NS 500 ML IV ONE ×2 (20:30→22:30)
[2022-04-15 22:03] LABS: HEMATOCRIT 29.8 % (36.0-47.0); HEMOGLOBIN 9.5 g/dl (12.0-15.5); MEAN CORPUSCULAR HEMOGLOBIN 31.3 pg (27.0-33.0); MEAN CORPUSCULAR HGB CONC 31.9 g/dl (32.0-36.5); PLATELET COUNT, AUTOMATED 184 10^3/uL (150-450); RED BLOOD COUNT 3.04 10^6/uL (4.00-5.40); WHITE BLOOD COUNT 7.8 10^3/uL (4.0-10.0)
[2022-04-15 22:27] LABS: LIPASE 24 U/L (12-53)
[2022-04-15 22:32] LABS: ALBUMIN 3.1 G/DL (3.2-5.2); ALKALINE PHOSPHATASE 138 U/L (46-116); ALT/SGPT 12 U/L (7.0-40); AST/SGOT 13 U/L (<34); BILIRUBIN,DIRECT < 0.1 MG/DL (<0.4); BILIRUBIN,TOTAL < 0.2 MG/DL (0.3-1.2); BLOOD UREA NITROGEN 44 MG/DL (9-23); CALCIUM LEVEL 9.4 MG/DL (8.3-10.6); CARBON DIOXIDE LEVEL 22 MMOL/L (20-31); CHLORIDE LEVEL 107 MMOL/L (98-107); CREATININE FOR GFR 1.45 MG/DL (0.55-1.30); GLOMERULAR FILTRATION RATE 37.3 (>39); GLUCOSE, FASTING 100 MG/DL (74-106); POTASSIUM SERUM 5.8 MMOL/L (3.5-5.1); SODIUM LEVEL 139 MMOL/L (136-145); TOTAL PROTEIN 6.4 G/DL (5.7-8.2)
[2022-04-15 23:02] LABS: BASOPHILS 3 % (0-1); EOSINOPHILS 2 % (0-3); LYMPHOCYTES 8 % (16-44); METAMYELOCYTES 1 % (0-0); MONOCYTES 11 % (0-5); MYELOCYTES 1 % (0-0); NEUTROPHILS 63 % (28-66)
[2022-04-15] MEDS ORDERED: PATIROMER SORBITEX CALCIUM 8.4 GM POWDER PACKET (VELTASSA) PO ONE (23:05)
[2022-04-15] MEDS ORDERED: NS 1,000 ML IV SCH (23:05)
[2022-04-15 23:06] LABS: DOHLE BODIES 2+
[2022-04-15 23:07] LABS: OVALOCYTES 1+
[2022-04-15 23:08] LABS: PLATELET ESTIMATE NORMAL (NORMAL); SCHISTOCYTES 1+
[2022-04-16] MEDS ORDERED: diphenhydrAMINE 25MG CAP PO ONE (00:20)
[2022-04-16 00:34] LABS: RSV AMPLIFICATION NEGATIVE (NEGATIVE)
[2022-04-16 01:03] LABS: CALCIUM LEVEL 8.4 MG/DL (8.3-10.6); CREATININE FOR GFR 1.31 MG/DL (0.55-1.30); GLOMERULAR FILTRATION RATE 41.9 (>39); POTASSIUM SERUM 5.3 MMOL/L (3.5-5.1)
[2022-04-16] MEDS ORDERED: VELT1POW PO (01:29)
[2022-04-16 01:30] VITALS: BP 166/76
[2022-04-18] MEDS ORDERED: BETA5OI TOP (13:44)
== END 2022-04-16 01:43 | disposition home or self-care (01) ==
LOC: M ED 19:52
DX: E87.5 Hyperkalemia (principal); R00.0 Tachycardia, unspecified; I49.1 Atrial premature depolarization; I25.2 Old myocardial infarction; I44.4 Left anterior fascicular block; E78.5 Hyperlipidemia, unspecified; E11.9 Type 2 diabetes mellitus without complications; I10 Essential (primary) hypertension; N18.9 Chronic kidney disease, unspecified; Z87.442 Personal history of urinary calculi; Z88.0 Allergy status to penicillin; Z88.2 Allergy status to sulfonamides; Z88.8 Allergy status to other drugs, medicaments and biological substances; Z79.82 Long term (current) use of aspirin; Z79.811 Long term (current) use of aromatase inhibitors; Z79.83 Long term (current) use of bisphosphonates; Z79.4 Long term (current) use of insulin; Z79.899 Other long term (current) drug therapy

== ENCOUNTER → 2022-04-15 | Outpatient (REF) | payer MEDICARE ==
[2022-04-15 17:06] LABS: CALCIUM LEVEL 9.1 MG/DL (8.3-10.6); CREATININE FOR GFR 1.43 MG/DL (0.55-1.30); GLOMERULAR FILTRATION RATE 37.9 (>39)
== END ==
LOC: M SFHCADAM 16:28
PROVIDERS: ATTEND Physician Assistant
DX: E87.5 Hyperkalemia (principal)

== ENCOUNTER → 2022-04-19 | Outpatient (REF) | payer MEDICARE ==
[~2022-04-19] MED LIST changes: +LEVO1TAB39 PO; +VELT1POW PO
[2022-04-19 15:23] LABS: CALCIUM LEVEL 8.7 MG/DL (8.3-10.6); POTASSIUM SERUM 4.9 MMOL/L (3.5-5.1)
[2022-04-19 20:30] LABS: CREATININE FOR GFR 1.19 MG/DL (0.55-1.30); GLOMERULAR FILTRATION RATE 46.8 (>39)
== END ==
LOC: M LABDRWAD 13:14
PROVIDERS: ATTEND Emergency Medicine
DX: E87.5 Hyperkalemia (principal)

== ENCOUNTER → 2022-04-20 | Outpatient (REF) | payer MEDICARE | LOC: M SFHCADAM 11:22 | PROVIDERS: ATTEND Physician Assistant | DX: A49.8 Other bacterial infections of unspecified site (principal) ==

== ENCOUNTER → 2022-05-05 | Outpatient (REF) | payer MEDICARE ==
[2022-05-05 16:27] LABS: ALKALINE PHOSPHATASE 100 U/L (46-116); ALT/SGPT < 9 U/L (7.0-40); AST/SGOT < 8 U/L (<34); BILIRUBIN,TOTAL 0.2 MG/DL (0.3-1.2); BLOOD UREA NITROGEN 53 MG/DL (9-23); CALCIUM LEVEL 8.9 MG/DL (8.3-10.6); CARBON DIOXIDE LEVEL 23 MMOL/L (20-31); CHLORIDE LEVEL 110 MMOL/L (98-107); CREATININE FOR GFR 1.07 MG/DL (0.55-1.30); GLOMERULAR FILTRATION RATE 52.9 (>39); GLUCOSE, FASTING 83 MG/DL (74-106); POTASSIUM SERUM 5.4 MMOL/L (3.5-5.1); SODIUM LEVEL 139 MMOL/L (136-145)
== END ==
LOC: M LAB REF 14:52
PROVIDERS: ATTEND Nurse Practitioner
DX: C50.312 Malignant neoplasm of lower-inner quadrant of left female breast (principal)

== ENCOUNTER → 2022-05-20 | Outpatient (CLI) | payer MEDICARE, OTHER | LOC: M ONCR 12:57 | PROVIDERS: ATTEND General Practice | DX: C50.312 Malignant neoplasm of lower-inner quadrant of left female breast (principal); Z92.21 Personal history of antineoplastic chemotherapy ==

== ENCOUNTER → 2022-06-07 | Outpatient (CLI) | payer MEDICARE, OTHER ==
[~2022-06-07] MED LIST changes: +SODI15SS PO
== END ==
LOC: M WHC 12:35
PROVIDERS: ATTEND Specialist
DX: C50.912 Malignant neoplasm of unspecified site of left female breast (principal)

== ENCOUNTER → 2022-06-13 | Outpatient (CLI) | payer MEDICARE, OTHER ==
[2022-06-15 06:08] LABS: HSV TYPE II IgG SPECIFIC <0.91 index (0.00-0.90)
== END ==
LOC: M LABDRWAD 13:04
PROVIDERS: ATTEND Internal Medicine Infectious Disease
DX: N76.6 Ulceration of vulva (principal)

== ENCOUNTER → 2022-06-20 | Outpatient (REF) | payer MEDICARE, OTHER | LOC: M SFHCPLAZ 12:34 | PROVIDERS: ATTEND Internal Medicine Infectious Disease | DX: N76.6 Ulceration of vulva (principal) ==

== ENCOUNTER → 2022-06-22 | Outpatient (REF) | payer MEDICARE, OTHER ==
[~2022-06-22] MED LIST changes: +VALT500T PO
[2022-06-23 07:08] LABS: HSV TYPE II IgG SPECIFIC <0.91 index (0.00-0.90)
== END ==
LOC: M LAB REF 11:03
PROVIDERS: ATTEND Internal Medicine Infectious Disease
DX: N76.6 Ulceration of vulva (principal)

== ENCOUNTER → 2022-07-01 | Outpatient (REF) | payer MEDICARE, OTHER | LOC: M SFHCWAGY 10:22 | PROVIDERS: ATTEND Specialist | DX: B00.9 Herpesviral infection, unspecified (principal) ==

== ENCOUNTER → 2022-07-04 | Outpatient (REF) | payer MEDICARE, OTHER ==
[2022-07-04 17:58] LABS: CALCIUM LEVEL 9.2 MG/DL (8.3-10.6); CREATININE FOR GFR 1.12 MG/DL (0.55-1.30); GLOMERULAR FILTRATION RATE 50.1 (>39); POTASSIUM SERUM 4.3 MMOL/L (3.5-5.1)
== END ==
LOC: M SFHCADAM 13:04
PROVIDERS: ATTEND Physician Assistant Medical
DX: R19.5 Other fecal abnormalities (principal)

== ENCOUNTER → 2022-07-08 | Outpatient (REF) | payer MEDICARE, OTHER | LOC: M SFHCADAM 07:57 | PROVIDERS: ATTEND Physician Assistant Medical | DX: E83.42 Hypomagnesemia (principal) ==

== ENCOUNTER → 2022-07-28 | Outpatient (REF) | payer MEDICARE, OTHER ==
[~2022-07-28] MED LIST changes: +METF10004; +SENN-111 PO; -SENN18TA PO; +TRAZ-252 PO
== END ==
LOC: M LAB REF 12:53
PROVIDERS: ATTEND Nurse Practitioner
DX: C50.312 Malignant neoplasm of lower-inner quadrant of left female breast (principal)

== ENCOUNTER → 2022-09-13 | Outpatient (CLI) | payer MEDICARE, OTHER ==
[~2022-09-13] MED LIST changes: +PROHANCE 279.3MG/ML 5ML VIAL ONE
== END ==
LOC: M PLAIMG 14:39
PROVIDERS: ATTEND Surgery
DX: C50.312 Malignant neoplasm of lower-inner quadrant of left female breast (principal); Z92.21 Personal history of antineoplastic chemotherapy
CPT/HCPCS: A9576; C8908

== ENCOUNTER → 2022-10-10 | Outpatient (CLI) | payer MEDICARE, OTHER ==
[~2022-10-10] MED LIST changes: -PROHANCE 279.3MG/ML 5ML VIAL ONE; +TRAZ-252
== END ==
LOC: M PLARAD 07:28
PROVIDERS: ATTEND Surgery
DX: C50.919 Malignant neoplasm of unspecified site of unspecified female breast (principal)
CPT/HCPCS: 78815; A9552

== ENCOUNTER → 2022-10-13 | Outpatient (REF) | payer MEDICARE, OTHER ==
[2022-10-13 16:45] LABS: HEMOGLOBIN A1c 4.9 % (4.0-6.0)
[2022-10-13 16:56] LABS: CHOLESTEROL RISK RATIO 4.16 (<5); HDL CHOLESTEROL 32.9 MG/DL (>40); LDL CHOLESTEROL 70.5 MG/DL (<100); MAGNESIUM LEVEL 1.6 MG/DL (1.8-2.4); NON-HDL-C 104.1 MG/DL
[2022-10-13 16:59] LABS: THYROID STIMULATING HORMONE 0.244 uIU/ML (0.55-4.78)
== END ==
LOC: M SFHCADAM 13:28
PROVIDERS: ATTEND Physician Assistant Medical
DX: E55.9 Vitamin D deficiency, unspecified (principal); E03.9 Hypothyroidism, unspecified; E11.22 Type 2 diabetes mellitus with diabetic chronic kidney disease

== ENCOUNTER → 2022-11-11 | Outpatient (CLI) | payer MEDICARE, OTHER ==
[~2022-11-11] MED LIST changes: +LETR2.5T2 PO; +LEVO125T4
== END ==
LOC: M WHC 12:38
PROVIDERS: ATTEND Internal Medicine Medical Oncology
DX: C50.919 Malignant neoplasm of unspecified site of unspecified female breast (principal); M81.0 Age-related osteoporosis without current pathological fracture

== ENCOUNTER → 2022-11-14 | Outpatient (CLI) | payer MEDICARE, OTHER | LOC: M RAD 08:54 | PROVIDERS: ATTEND Surgery Vascular Surgery | DX: I70.1 Atherosclerosis of renal artery (principal); I15.0 Renovascular hypertension ==

== ENCOUNTER 2022-11-21 13:41 | Outpatient (RCR) | payer MEDICARE, OTHER ==
[~2022-11-21 13:41] MED LIST changes: -LEVO125T4; +LEVO125T4 PO; -METF10004
[2022-12-05] MEDS ORDERED: HYDR-643 PO ×2 (11:24→11:25)
[2022-12-06] MEDS ORDERED: VERZ100T PO (17:35)
[2022-12-13] MEDS ORDERED: VERZ100T PO (11:55)
[2022-12-26] MEDS ORDERED: FLUO1CRE4 TOP (11:14)
[2022-12-28] MEDS ORDERED: MOME0.1O3 TOP (14:57)
== END 2022-11-26 ==
LOC: M ONCR 13:41
PROVIDERS: ATTEND General Practice
DX: Z51.0 Encounter for antineoplastic radiation therapy (principal); C50.312 Malignant neoplasm of lower-inner quadrant of left female breast

== ENCOUNTER → 2022-12-27 | Outpatient (RCR) | payer MEDICARE, OTHER ==
[~2022-12-27] MED LIST changes: +FLUO1CRE4 TOP; +HYDR-643 PO; +MOME0.1O3 TOP; +VERZ100T PO
== END ==
LOC: M ONCR 12-05 10:04
PROVIDERS: ATTEND General Practice
DX: Z51.0 Encounter for antineoplastic radiation therapy (principal); C50.312 Malignant neoplasm of lower-inner quadrant of left female breast

== ENCOUNTER 2023-01-17 10:22 | Outpatient (RCR) | payer MEDICARE, OTHER ==
[2023-01-18] MEDS ORDERED: LETR2.5T2 PO (14:28)
== END 2023-01-26 ==
LOC: M ONCR 10:22
PROVIDERS: ATTEND General Practice
DX: Z51.0 Encounter for antineoplastic radiation therapy (principal); C50.312 Malignant neoplasm of lower-inner quadrant of left female breast

== ENCOUNTER → 2023-02-13 | Outpatient (CLI) | payer MEDICARE, OTHER ==
[2023-02-13 19:37] LABS: BASO % 0.8 % (0.0-1.0); EOS # 0.3 10^3/uL (0.0-0.5); EOS % 9.9 % (0.0-3.0); HEMATOCRIT 31.1 % (36.0-47.0); HEMOGLOBIN 9.8 g/dl (12.0-15.5); LYMPH # 0.3 10^3/uL (1.5-5.0); LYMPH % 12.9 % (24.0-44.0); MEAN CORPUSCULAR HEMOGLOBIN 31.9 pg (27.0-33.0); MEAN CORPUSCULAR HGB CONC 31.5 g/dl (32.0-36.5); MEAN CORPUSCULAR VOLUME 101.3 fl (80.0-96.0); MONO # 0.3 10^3/uL (0.0-0.8); NEUTROPHILS # 1.7 10^3/uL (1.5-8.5); PLATELET COUNT, AUTOMATED 111 10^3/uL (150-450); RED BLOOD COUNT 3.07 10^6/uL (4.00-5.40); WHITE BLOOD COUNT 2.6 10^3/uL (4.0-10.0)
[2023-02-13 20:04] LABS: ALBUMIN 3.5 G/DL (3.2-5.2); ALKALINE PHOSPHATASE 97 U/L (46-116); ALT/SGPT 11 U/L (7.0-40); AST/SGOT 9 U/L (<34); BILIRUBIN,TOTAL 0.2 MG/DL (0.3-1.2); BLOOD UREA NITROGEN 37 MG/DL (9-23); CALCIUM LEVEL 9.3 MG/DL (8.3-10.6); CARBON DIOXIDE LEVEL 22 MMOL/L (20-31); CHLORIDE LEVEL 112 MMOL/L (98-107); CREATININE FOR GFR 1.57 MG/DL (0.55-1.30); GLOMERULAR FILTRATION RATE 33.9 (>39); GLUCOSE, FASTING 133 MG/DL (74-106); POTASSIUM SERUM 5.5 MMOL/L (3.5-5.1); SODIUM LEVEL 141 MMOL/L (136-145); TOTAL PROTEIN 6.8 G/DL (5.7-8.2)
[2023-02-13 20:06] LABS: THYROID STIMULATING HORMONE 1.531 uIU/ML (0.55-4.78)
[2023-02-13 20:44] LABS: HEPATITIS B CORE ANTIBODY IGM NEGATIVE (NEGATIVE); HEPATITIS C VIRUS ABY INDEX 0.11 INDEX (<0.8)
== END ==
LOC: M ADAMS 13:48
PROVIDERS: ATTEND Dermatology
DX: L29.9 Pruritus, unspecified (principal)

== ENCOUNTER → 2023-04-03 | Outpatient (REF) | payer MEDICARE, OTHER ==
[~2023-04-03] MED LIST changes: -HYDR-3911 PO; +HYDR50TA46 PO
[2023-04-03 15:24] LABS: BASO % 1.1 % (0.0-1.0); EOS # 0.1 10^3/uL (0.0-0.5); EOS % 4.5 % (0.0-3.0); HEMOGLOBIN 9.3 g/dl (12.0-15.5); LYMPH # 0.4 10^3/uL (1.5-5.0); LYMPH % 16.7 % (24.0-44.0); MEAN CORPUSCULAR HEMOGLOBIN 32.9 pg (27.0-33.0); MONO # 0.2 10^3/uL (0.0-0.8); MONO % 8.3 % (2.0-8.0); NEUTROPHILS # 1.8 10^3/uL (1.5-8.5); PLATELET COUNT, AUTOMATED 106 10^3/uL (150-450); RED BLOOD COUNT 2.83 10^6/uL (4.00-5.40); WHITE BLOOD COUNT 2.6 10^3/uL (4.0-10.0)
[2023-04-03 15:43] LABS: ALBUMIN 3.5 G/DL (3.2-5.2); BILIRUBIN,TOTAL 0.2 MG/DL (0.3-1.2); CALCIUM LEVEL 9.4 MG/DL (8.3-10.6); CREATININE FOR GFR 1.57 MG/DL (0.55-1.30); GLOMERULAR FILTRATION RATE 33.9 (>39); POTASSIUM SERUM 5.6 MMOL/L (3.5-5.1); TOTAL PROTEIN 7.3 G/DL (5.7-8.2)
== END ==
LOC: M LABDRWAD 12:31
PROVIDERS: ATTEND Nurse Practitioner
DX: C50.312 Malignant neoplasm of lower-inner quadrant of left female breast (principal); C77.3 Secondary and unspecified malignant neoplasm of axilla and upper limb lymph nodes

== ENCOUNTER → 2023-05-25 | Outpatient (REF) | payer MEDICARE, OTHER ==
[~2023-05-25] MED LIST changes: -ASPI-161 PO; +ASPI-615 PO; -HYDR-3910 PO; +HYDR25TA87 PO
[2023-05-25 13:53] LABS: BASO % 1.1 % (0.0-1.0); EOS % 1.6 % (0.0-3.0); HEMATOCRIT 27.5 % (36.0-47.0); HEMOGLOBIN 9.1 g/dl (12.0-15.5); LYMPH # 0.4 10^3/uL (1.5-5.0); LYMPH % 20.7 % (24.0-44.0); MEAN CORPUSCULAR HEMOGLOBIN 35.5 pg (27.0-33.0); MEAN CORPUSCULAR HGB CONC 33.1 g/dl (32.0-36.5); MEAN CORPUSCULAR VOLUME 107.4 fl (80.0-96.0); MONO # 0.3 10^3/uL (0.0-0.8); MONO % 14.9 % (2.0-8.0); NEUTROPHILS # 1.2 10^3/uL (1.5-8.5); NEUTROPHILS % 61.2 % (36.0-66.0); RED BLOOD COUNT 2.56 10^6/uL (4.00-5.40); WHITE BLOOD COUNT 1.9 10^3/uL (4.0-10.0)
[2023-05-25 13:57] LABS: PLATELET COUNT, AUTOMATED 78 10^3/uL (150-450)
== END ==
LOC: M LABDRWAD 12:57
PROVIDERS: ATTEND Nurse Practitioner
DX: C50.919 Malignant neoplasm of unspecified site of unspecified female breast (principal)

== ENCOUNTER → 2023-06-14 | Outpatient (REF) | payer MEDICARE, OTHER ==
[2023-06-14 14:39] LABS: BASO % 0.8 % (0.0-1.0); EOS # 0.1 10^3/uL (0.0-0.5); EOS % 3.1 % (0.0-3.0); HEMATOCRIT 29.4 % (36.0-47.0); HEMOGLOBIN 9.3 g/dl (12.0-15.5); LYMPH # 0.4 10^3/uL (1.5-5.0); LYMPH % 10.8 % (24.0-44.0); MEAN CORPUSCULAR HEMOGLOBIN 35.4 pg (27.0-33.0); MEAN CORPUSCULAR HGB CONC 31.6 g/dl (32.0-36.5); MEAN CORPUSCULAR VOLUME 111.8 fl (80.0-96.0); MONO # 0.5 10^3/uL (0.0-0.8); MONO % 13.1 % (2.0-8.0); NEUTROPHILS # 2.5 10^3/uL (1.5-8.5); NEUTROPHILS % 69.1 % (36.0-66.0); PLATELET COUNT, AUTOMATED 217 10^3/uL (150-450); RED BLOOD COUNT 2.63 10^6/uL (4.00-5.40); WHITE BLOOD COUNT 3.6 10^3/uL (4.0-10.0)
[2023-06-14 14:40] LABS: BILIRUBIN,TOTAL 0.2 MG/DL (0.3-1.2); CALCIUM LEVEL 9.5 MG/DL (8.3-10.6); CREATININE FOR GFR 1.05 MG/DL (0.55-1.30); TOTAL PROTEIN 6.8 G/DL (5.7-8.2)
== END ==
LOC: M LABDRWAD 12:42
PROVIDERS: ATTEND Nurse Practitioner
DX: C50.919 Malignant neoplasm of unspecified site of unspecified female breast (principal)

== ENCOUNTER 2023-06-17 05:30 | Emergency (ER) | payer MEDICARE, OTHER ==
[~2023-06-17] VITALS: Ht 152.4 cm; Wt 69.1 kg
[2023-06-17 05:59] LABS: BASO % 0.4 % (0.0-1.0); EOS # 0.2 10^3/uL (0.0-0.5); EOS % 2.3 % (0.0-3.0); HEMATOCRIT 30.2 % (36.0-47.0); HEMOGLOBIN 9.8 g/dl (12.0-15.5); LYMPH # 0.8 10^3/uL (1.5-5.0); LYMPH % 10.1 % (24.0-44.0); MEAN CORPUSCULAR HEMOGLOBIN 35.3 pg (27.0-33.0); MEAN CORPUSCULAR HGB CONC 32.5 g/dl (32.0-36.5); MEAN CORPUSCULAR VOLUME 108.6 fl (80.0-96.0); MONO # 0.7 10^3/uL (0.0-0.8); NEUTROPHILS # 5.7 10^3/uL (1.5-8.5); PLATELET COUNT, AUTOMATED 227 10^3/uL (150-450); RED BLOOD COUNT 2.78 10^6/uL (4.00-5.40); WHITE BLOOD COUNT 7.4 10^3/uL (4.0-10.0)
[2023-06-17 06:39] LABS: CPK CREATINE PHOSPHOKINASE 83 U/L (34-145)
[2023-06-17 06:44] LABS: ALBUMIN 3.6 G/DL (3.2-5.2); ALKALINE PHOSPHATASE 128 U/L (46-116); ALT/SGPT 23 U/L (7.0-40); AST/SGOT 19 U/L (<34); BILIRUBIN,DIRECT < 0.1 MG/DL (<0.4); BILIRUBIN,TOTAL 0.2 MG/DL (0.3-1.2); BLOOD UREA NITROGEN 49 MG/DL (9-23); CALCIUM LEVEL 9.8 MG/DL (8.3-10.6); CARBON DIOXIDE LEVEL 22 MMOL/L (20-31); CHLORIDE LEVEL 102 MMOL/L (98-107); CK-MB VALUE MASS 2.7 NG/ML (<3.6); CREATININE FOR GFR 1.22 MG/DL (0.55-1.30); FREE T4 1.16 NG/DL (0.89-1.76); GLOMERULAR FILTRATION RATE 45.4 (>39); GLUCOSE, FASTING 203 MG/DL (74-106); MB/CK RELATIVE INDEX 3.25 (< OR =4); POTASSIUM SERUM 3.9 MMOL/L (3.5-5.1); SODIUM LEVEL 135 MMOL/L (136-145); THYROID STIMULATING HORMONE 1.616 uIU/ML (0.55-4.78); TOTAL PROTEIN 7.3 G/DL (5.7-8.2)
[2023-06-17] MEDS: ACETAMINOPHEN 325 MG TAB PO ONE (07:11)
[2023-06-17 07:23] LABS: CK-MB VALUE MASS 2.4 NG/ML (<3.6)
[2023-06-17 07:25] LABS: MB/CK RELATIVE INDEX 3.38 (< OR =4)
[2023-06-17 07:41] VITALS: BP 146/67
[2023-06-17] MEDS: NS 500 ML IV ONE (07:41)
[2023-06-17] MEDS: METOPROLOL SUCC *XL* 25MG TAB (TopROL *XL*) PO ONE (07:41)
[2023-06-17] MEDS: hydroCHLOROthiazide 12.5 MG CAPSULE PO ONE (07:41)
[2023-06-17 08:30] VITALS: BP 130/58; O2SAT 96
[2023-06-17 09:05] VITALS: TEMP 96.8
== END 2023-06-17 09:06 | disposition home or self-care (01) ==
LOC: M ED 05:30
DX: R51.9 Headache, unspecified (principal); I10 Essential (primary) hypertension; E86.0 Dehydration; R00.0 Tachycardia, unspecified; I25.2 Old myocardial infarction; Z88.2 Allergy status to sulfonamides; Z88.8 Allergy status to other drugs, medicaments and biological substances; Z79.899 Other long term (current) drug therapy; Z79.1 Long term (current) use of non-steroidal anti-inflammatories (NSAID); Z79.84 Long term (current) use of oral hypoglycemic drugs

== ENCOUNTER → 2023-06-28 | Outpatient (REF) | payer MEDICARE, OTHER ==
[2023-06-28 13:43] LABS: BASO % 0.5 % (0.0-1.0); EOS # 0.2 10^3/uL (0.0-0.5); EOS % 5.5 % (0.0-3.0); HEMATOCRIT 28.1 % (36.0-47.0); HEMOGLOBIN 8.8 g/dl (12.0-15.5); LYMPH # 0.3 10^3/uL (1.5-5.0); MEAN CORPUSCULAR HEMOGLOBIN 35.3 pg (27.0-33.0); MEAN CORPUSCULAR HGB CONC 31.3 g/dl (32.0-36.5); MEAN CORPUSCULAR VOLUME 112.9 fl (80.0-96.0); MONO # 0.2 10^3/uL (0.0-0.8); NEUTROPHILS # 3.2 10^3/uL (1.5-8.5); NEUTROPHILS % 81.5 % (36.0-66.0); PLATELET COUNT, AUTOMATED 186 10^3/uL (150-450); RED BLOOD COUNT 2.49 10^6/uL (4.00-5.40)
== END ==
LOC: M LABDRWAD 13:06
PROVIDERS: ATTEND Nurse Practitioner
DX: C50.919 Malignant neoplasm of unspecified site of unspecified female breast (principal)

== ENCOUNTER → 2023-07-05 | Outpatient (REF) | payer MEDICARE, OTHER ==
[2023-07-05 19:05] LABS: ALBUMIN 3.2 G/DL (3.2-5.2); BILIRUBIN,TOTAL 0.3 MG/DL (0.3-1.2); CALCIUM LEVEL 9.9 MG/DL (8.3-10.6); CHOLESTEROL RISK RATIO 3.27 (<5); CREATININE FOR GFR 1.7 MG/DL (0.55-1.30); GLOMERULAR FILTRATION RATE 30.9 (>39); HDL CHOLESTEROL 40.9 MG/DL (>40); LDL CHOLESTEROL 66.7 MG/DL (<100); MAGNESIUM LEVEL 1.7 MG/DL (1.8-2.4); NON-HDL-C 93.1 MG/DL; POTASSIUM SERUM 5.9 MMOL/L (3.5-5.1); TOTAL PROTEIN 6.7 G/DL (5.7-8.2)
[2023-07-05 19:08] LABS: THYROID STIMULATING HORMONE 1.69 uIU/ML (0.55-4.78)
[2023-07-05 19:20] LABS: BASO % 0.8 % (0.0-1.0); EOS # 0.1 10^3/uL (0.0-0.5); HEMATOCRIT 26.3 % (36.0-47.0); HEMOGLOBIN 8.3 g/dl (12.0-15.5); LYMPH # 0.4 10^3/uL (1.5-5.0); LYMPH % 14.1 % (24.0-44.0); MEAN CORPUSCULAR HEMOGLOBIN 35.9 pg (27.0-33.0); MEAN CORPUSCULAR HGB CONC 31.6 g/dl (32.0-36.5); MEAN CORPUSCULAR VOLUME 113.9 fl (80.0-96.0); MONO # 0.2 10^3/uL (0.0-0.8); MONO % 6.9 % (2.0-8.0); NEUTROPHILS # 1.9 10^3/uL (1.5-8.5); NEUTROPHILS % 72.8 % (36.0-66.0); RED BLOOD COUNT 2.31 10^6/uL (4.00-5.40); WHITE BLOOD COUNT 2.6 10^3/uL (4.0-10.0)
[2023-07-05 20:23] LABS: PLATELET COUNT, AUTOMATED 83 10^3/uL (150-450)
== END ==
LOC: M SFHCADAM 13:44
PROVIDERS: ATTEND Physician Assistant Medical
DX: E11.22 Type 2 diabetes mellitus with diabetic chronic kidney disease (principal); E55.9 Vitamin D deficiency, unspecified

== ENCOUNTER → 2023-07-11 | Outpatient (REF) | payer MEDICARE, OTHER ==
[2023-07-11 14:23] LABS: CALCIUM LEVEL 9.7 MG/DL (8.3-10.6); CREATININE FOR GFR 1.67 MG/DL (0.55-1.30); GLOMERULAR FILTRATION RATE 31.5 (>39)
== END ==
LOC: M SFHCADAM 08:45
PROVIDERS: ATTEND Physician Assistant Medical
DX: E87.5 Hyperkalemia (principal)

== ENCOUNTER 2023-07-14 17:52 | Inpatient (IN) | payer MEDICARE, OTHER ==
[~2023-07-14] VITALS: Ht 154.9 cm; Wt 70.6 kg
[2023-07-14 19:05] LABS: IONIZED CALCIUM 5.2 MG/DL (4.5-5.3)
[2023-07-14 19:08] LABS: VENOUS BASE EXCESS -9.1 (-2.0-2.0); VENOUS HCO3 17.8 MMOL/L (23.0-27.0); VENOUS PARTIAL PRESSURE CO2 43.5 mmHg (38.0-50.0); VENOUS PARTIAL PRESSURE O2 43.7 mmHg (30.0-50.0); VENOUS PH 7.231 UNITS (7.330-7.430); VENOUS STANDARD HCO3 16.7 MMOL/L; VENOUS TOTAL CO2 19.2 MMOL/L (24.0-28.0)
[2023-07-14 19:10] LABS: BASO % 1.3 % (0.0-1.0); EOS # 0.1 10^3/uL (0.0-0.5); EOS % 4.4 % (0.0-3.0); HEMOGLOBIN 8.2 g/dl (12.0-15.5); LYMPH # 0.3 10^3/uL (1.5-5.0); LYMPH % 16.3 % (24.0-44.0); MEAN CORPUSCULAR HEMOGLOBIN 36.3 pg (27.0-33.0); MEAN CORPUSCULAR HGB CONC 32.8 g/dl (32.0-36.5); MEAN CORPUSCULAR VOLUME 110.6 fl (80.0-96.0); MONO # 0.1 10^3/uL (0.0-0.8); MONO % 7.5 % (2.0-8.0); NEUTROPHILS # 1.1 10^3/uL (1.5-8.5); NEUTROPHILS % 69.9 % (36.0-66.0); RED BLOOD COUNT 2.26 10^6/uL (4.00-5.40); WHITE BLOOD COUNT 1.6 10^3/uL (4.0-10.0)
[2023-07-14 19:13] LABS: PLATELET COUNT, AUTOMATED 45 10^3/uL (150-450)
[2023-07-14] MEDS: PATIROMER SORBITEX CALCIUM 8.4 GM POWDER PACKET (VELTASSA) PO ONE (19:19)
[2023-07-14 19:31] LABS: MAGNESIUM LEVEL 1.8 MG/DL (1.8-2.4)
[2023-07-14 19:32] LABS: OSMOLALITY SERUM 307 MOSM/KG (280-301); URIC ACID 5.6 MG/DL (3.1-7.8)
[2023-07-14 19:37] LABS: THYROID STIMULATING HORMONE 0.792 uIU/ML (0.55-4.78)
[2023-07-14 19:48] LABS: ALBUMIN 3.3 G/DL (3.2-5.2); ALKALINE PHOSPHATASE 96 U/L (46-116); ALT/SGPT 13 U/L (7.0-40); AST/SGOT 16 U/L (<34); BILIRUBIN,DIRECT < 0.1 MG/DL (<0.4); BILIRUBIN,TOTAL 0.2 MG/DL (0.3-1.2); BLOOD UREA NITROGEN 51 MG/DL (9-23); CALCIUM LEVEL 9.6 MG/DL (8.3-10.6); CARBON DIOXIDE LEVEL 19 MMOL/L (20-31); CHLORIDE LEVEL 113 MMOL/L (98-107); CREATININE FOR GFR 2.02 MG/DL (0.55-1.30); GLOMERULAR FILTRATION RATE 25.3 (>39); GLUCOSE, FASTING 83 MG/DL (74-106); POTASSIUM SERUM 6.4 MMOL/L (3.5-5.1); SODIUM LEVEL 141 MMOL/L (136-145); TOTAL PROTEIN 7.1 G/DL (5.7-8.2)
[2023-07-14] MEDS: NS 1,000 ML IV SCH (20:53)
[2023-07-14] MEDS: **hydrALAZINE** 50 MG TAB PO ONE (20:54)
[2023-07-14] MEDS ORDERED: SLOWTAB2 PO (21:12)
[2023-07-14] MEDS ORDERED: LETR2.5T2 PO (21:12)
[2023-07-14] MEDS ORDERED: CALC1TAB42 PO (21:12)
[2023-07-14] MEDS ORDERED: DOXE10CA PO (21:12)
[2023-07-14] MEDS ORDERED: METO1TAB32 PO (21:12)
[2023-07-14] MEDS ORDERED: HOME MED LIST COMPLETE! XX SCH (21:15)
[2023-07-14 21:43] LABS: TOTAL PROTEIN,RANDOM URINE 30.9 MG/DL (0.0-14.0)
[2023-07-14 21:48] LABS: CREATININE,RANDOM URINE 26.3 MG/DL
[2023-07-14] MEDS ORDERED: HEPARIN SOD (PORCINE) 5000UNITS/ML 1ML VIAL/SYRINGE SC SCH (21:55)
[2023-07-14] MEDS: DEXTROSE 50% 50ML SYRINGE IV STA (22:25)
[2023-07-14] MEDS: HumuLIN R (REGULAR) INSULIN (NovoLIN R) **100U/ML** PER UNIT IV STA (22:25)
[2023-07-14] MEDS: ACETAMINOPHEN TAB 650MG DOSE (2X325MG) PO PRN (22:25)
[2023-07-14] MEDS: traZODone 50 MG TAB PO ONE (22:55)
[2023-07-15] MEDS ORDERED: GLUCAGON INJ 1MG VIAL SC PRN (01:25)
[2023-07-15] MEDS ORDERED: DEXTROSE 50% 50ML SYRINGE IV PRN (01:25)
[2023-07-15] MEDS ORDERED: GLUCOSE 4 GM CHEW PO PRN (01:25)
[2023-07-15] MEDS: LEVOTHYROXINE 125MCG TABLET (0.125MG) PO SCH (06:00)
[2023-07-15 07:27] LABS: HEMATOCRIT 25.4 % (36.0-47.0); HEMOGLOBIN 8.2 g/dl (12.0-15.5); MEAN CORPUSCULAR HEMOGLOBIN 36.1 pg (27.0-33.0); MEAN CORPUSCULAR HGB CONC 32.3 g/dl (32.0-36.5); MEAN CORPUSCULAR VOLUME 111.9 fl (80.0-96.0); RED BLOOD COUNT 2.27 10^6/uL (4.00-5.40); WHITE BLOOD COUNT 1.3 10^3/uL (4.0-10.0)
[2023-07-15 07:29] LABS: PLATELET COUNT, AUTOMATED 46 10^3/uL (150-450)
[2023-07-15] MEDS: INSULIN LISPRO (NovoLOG) PER UNIT SC SCH ×2 (07:30→20:32)
[2023-07-15 08:06] LABS: INR 1.2; PARTIAL THROMBOPLASTIN TIME 29.2 SECONDS (24.8-34.2); PROTHROMBIN TIME 14.8 SECONDS (12.5-14.5)
[2023-07-15 08:15] LABS: ALBUMIN 3.1 G/DL (3.2-5.2); CALCIUM LEVEL 9.1 MG/DL (8.3-10.6); CREATININE FOR GFR 1.61 MG/DL (0.55-1.30); FERRITIN 255.1 NG/ML (7.3-270.7); GLOMERULAR FILTRATION RATE 32.9 (>39); PHOSPHORUS LEVEL 4.1 MG/DL (2.4-5.1); POTASSIUM SERUM 5.1 MMOL/L (3.5-5.1)
[2023-07-15] MEDS: **hydrALAZINE** 50 MG TAB PO SCH (09:00)
[2023-07-15] MEDS: ASPIRIN 81MG ENTERIC TABLET PO SCH (09:00)
[2023-07-15] MEDS: ATORVASTATIN 20 MG TAB PO SCH (09:40)
[2023-07-15] MEDS: METOPROLOL SUCC *XL* 25MG TAB (TopROL *XL*) PO SCH (09:41)
[2023-07-15] MEDS: FILGRASTIM 300MCG 0.5ML SYRINGE **SC ADMINISTRATION ONLY SC SCH (10:34)
[2023-07-15 11:36] LABS: BILIRUBIN,TOTAL 0.2 MG/DL (0.3-1.2); TOTAL PROTEIN 6.7 G/DL (5.7-8.2)
[2023-07-15 11:50] LABS: BASOPHILS 2 % (0-1); EOSINOPHILS 2 % (0-3); LYMPHOCYTES 18 % (16-44); MONOCYTES 4 % (0-5); NEUTROPHILS 69 % (28-66)
[2023-07-15 11:51] LABS: PLATELET ESTIMATE MARKED DECREASE (NORMAL)
[2023-07-15 11:52] LABS: OVALOCYTES 1+; TEAR DROP CELLS 1+
[2023-07-15 11:53] LABS: ANISOCYTOSIS 1+; POIKILOCYTOSIS 1+; SCHISTOCYTES 1+
[2023-07-15] MEDS: LETROZOLE 2.5 MG TAB PO SCH (14:47)
[2023-07-15] MEDS: SODIUM BICARBONATE 150 MEQ in STERILE WATER LITER BAG 1,000 ML IV SCH (15:57)
[2023-07-15 17:24] VITALS: BP 127/58; TEMP 97.5; O2SAT 98
[2023-07-15 20:00] VITALS: BP 158/50; TEMP 97.7; O2SAT 97
[2023-07-16 01:00] VITALS: BP 150/49; TEMP 97.9; O2SAT 98
[2023-07-16] MEDS: NORCO, ANEXSIA 5/325MG TABLET (HYDROcodone/ACETAMINOPHEN) PO ONE (01:13)
[2023-07-16 06:00] VITALS: BP 130/58; TEMP 97.9; O2SAT 97
[2023-07-16 07:02] LABS: HEMATOCRIT 22.9 % (36.0-47.0); HEMOGLOBIN 7.7 g/dl (12.0-15.5); MEAN CORPUSCULAR HEMOGLOBIN 36.3 pg (27.0-33.0); MEAN CORPUSCULAR HGB CONC 33.6 g/dl (32.0-36.5); RED BLOOD COUNT 2.12 10^6/uL (4.00-5.40); WHITE BLOOD COUNT 2.5 10^3/uL (4.0-10.0)
[2023-07-16 07:04] LABS: PLATELET COUNT, AUTOMATED 37 10^3/uL (150-450)
[2023-07-16 07:24] LABS: ALBUMIN 2.8 G/DL (3.2-5.2); ALKALINE PHOSPHATASE 94 U/L (46-116); ALT/SGPT 10 U/L (7.0-40); AST/SGOT < 8 U/L (<34); BILIRUBIN,TOTAL 0.5 MG/DL (0.3-1.2); BLOOD UREA NITROGEN 27 MG/DL (9-23); CALCIUM LEVEL 9.2 MG/DL (8.3-10.6); CARBON DIOXIDE LEVEL 26 MMOL/L (20-31); CHLORIDE LEVEL 106 MMOL/L (98-107); CREATININE FOR GFR 1.25 MG/DL (0.55-1.30); GLUCOSE, FASTING 131 MG/DL (74-106); POTASSIUM SERUM 4.5 MMOL/L (3.5-5.1); SODIUM LEVEL 139 MMOL/L (136-145); TOTAL PROTEIN 6.3 G/DL (5.7-8.2)
[2023-07-16 07:44] LABS: ATYPICAL LYMPH 1 % (0-5); BASOPHILS 1 % (0-1); LYMPHOCYTES 12 % (16-44); MONOCYTES 5 % (0-5); NEUTROPHILS 65 % (28-66)
[2023-07-16 07:45] LABS: ANISOCYTOSIS 1+; OVALOCYTES 1+; TEAR DROP CELLS 1+
[2023-07-16 07:47] LABS: PLATELET ESTIMATE MARKED DECREASE (NORMAL); POIKILOCYTOSIS 1+; SCHISTOCYTES 1+
[2023-07-16 08:35] VITALS: BP 159/67
[2023-07-16 10:17] VITALS: BP 130/56; TEMP 98.1; O2SAT 96
== END 2023-07-16 13:04 | disposition home or self-care (01) | DRG 682 ==
LOC: M ED 17:52 → M ED INP 21:47 → M MSPAV 07-15 17:20 → OBSVTOIN 07-16 07:40
PROVIDERS: ADMIT Internal Medicine; ATTEND Internal Medicine
DX: N17.9 Acute kidney failure, unspecified (principal); D61.811 Other drug-induced pancytopenia; E87.20 Acidosis, unspecified; E85.3 Secondary systemic amyloidosis; E87.5 Hyperkalemia; I10 Essential (primary) hypertension; E78.00 Pure hypercholesterolemia, unspecified; E03.9 Hypothyroidism, unspecified; E53.8 Deficiency of other specified B group vitamins; E11.9 Type 2 diabetes mellitus without complications; M10.9 Gout, unspecified; Z92.21 Personal history of antineoplastic chemotherapy; Z88.2 Allergy status to sulfonamides; Z88.8 Allergy status to other drugs, medicaments and biological substances; Z79.899 Other long term (current) drug therapy; E66.9 Obesity, unspecified; Z92.3 Personal history of irradiation

== ENCOUNTER → 2023-08-09 | Outpatient (REF) | payer MEDICARE, OTHER ==
[~2023-08-09] MED LIST changes: +CALC1TAB42 PO; +DOXE10CA PO; +METO1TAB32 PO
[2023-08-09 18:41] LABS: BASO # 0.1 10^3/uL (0.0-0.2); BASO % 1.2 % (0.0-1.0); EOS # 0.1 10^3/uL (0.0-0.5); EOS % 3.3 % (0.0-3.0); HEMATOCRIT 33.3 % (36.0-47.0); HEMOGLOBIN 10.6 g/dl (12.0-15.5); LYMPH # 0.7 10^3/uL (1.5-5.0); LYMPH % 16.7 % (24.0-44.0); MEAN CORPUSCULAR HEMOGLOBIN 33.1 pg (27.0-33.0); MEAN CORPUSCULAR HGB CONC 31.8 g/dl (32.0-36.5); MEAN CORPUSCULAR VOLUME 104.1 fl (80.0-96.0); MONO # 0.6 10^3/uL (0.0-0.8); MONO % 13.8 % (2.0-8.0); NEUTROPHILS # 2.6 10^3/uL (1.5-8.5); NEUTROPHILS % 60.8 % (36.0-66.0); PLATELET COUNT, AUTOMATED 207 10^3/uL (150-450); WHITE BLOOD COUNT 4.3 10^3/uL (4.0-10.0)
[2023-08-09 18:45] LABS: ALBUMIN 3.5 G/DL (3.2-5.2); BILIRUBIN,TOTAL 0.3 MG/DL (0.3-1.2); CALCIUM LEVEL 9.9 MG/DL (8.3-10.6); CREATININE FOR GFR 1.09 MG/DL (0.55-1.30); GLOMERULAR FILTRATION RATE 51.5 (>39); POTASSIUM SERUM 5.6 MMOL/L (3.5-5.1); TOTAL PROTEIN 6.8 G/DL (5.7-8.2)
== END ==
LOC: M LABDRWAD 17:29
PROVIDERS: ATTEND Nurse Practitioner
DX: Z85.3 Personal history of malignant neoplasm of breast (principal)

== ENCOUNTER → 2023-08-23 | Outpatient (REF) | payer MEDICARE, OTHER ==
[2023-08-23 13:31] LABS: BASO % 0.6 % (0.0-1.0); EOS # 0.3 10^3/uL (0.0-0.5); EOS % 5.7 % (0.0-3.0); HEMATOCRIT 31.3 % (36.0-47.0); HEMOGLOBIN 10.2 g/dl (12.0-15.5); LYMPH # 0.6 10^3/uL (1.5-5.0); LYMPH % 11.7 % (24.0-44.0); MEAN CORPUSCULAR HEMOGLOBIN 34.6 pg (27.0-33.0); MEAN CORPUSCULAR HGB CONC 32.6 g/dl (32.0-36.5); MEAN CORPUSCULAR VOLUME 106.1 fl (80.0-96.0); MONO # 0.5 10^3/uL (0.0-0.8); MONO % 10.7 % (2.0-8.0); NEUTROPHILS # 3.4 10^3/uL (1.5-8.5); NEUTROPHILS % 69.7 % (36.0-66.0); PLATELET COUNT, AUTOMATED 178 10^3/uL (150-450); RED BLOOD COUNT 2.95 10^6/uL (4.00-5.40); WHITE BLOOD COUNT 4.9 10^3/uL (4.0-10.0)
[2023-08-23 14:04] LABS: ALBUMIN 3.3 G/DL (3.2-5.2); BILIRUBIN,TOTAL 0.4 MG/DL (0.3-1.2); CALCIUM LEVEL 9.4 MG/DL (8.3-10.6); CREATININE FOR GFR 1.05 MG/DL (0.55-1.30); GLOMERULAR FILTRATION RATE 53.8 (>39); POTASSIUM SERUM 4.9 MMOL/L (3.5-5.1); TOTAL PROTEIN 6.5 G/DL (5.7-8.2)
== END ==
LOC: M LAB REF 12:31
PROVIDERS: ATTEND Nurse Practitioner
DX: C50.919 Malignant neoplasm of unspecified site of unspecified female breast (principal)

== ENCOUNTER → 2023-10-20 | Outpatient (REF) | payer MEDICARE, OTHER ==
[2023-10-20 19:40] LABS: FERRITIN 324.6 NG/ML (7.3-270.7)
[2023-10-20 19:41] LABS: PERCENT SATURATION 12.1 % (13.2-45.0)
== END ==
LOC: M LAB REF 17:18
PROVIDERS: ATTEND Nurse Practitioner Family
DX: D50.9 Iron deficiency anemia, unspecified (principal)

== ENCOUNTER → 2024-01-19 | Outpatient (CLI) | payer MEDICARE, OTHER ==
[~2024-01-19] MED LIST changes: +GLIP10TA15 PO; -GLIP10TA6 PO; -SENN-111 PO; +SENN-165 PO
== END ==
LOC: M ONCR 11:23
PROVIDERS: ATTEND General Practice
DX: Z08 Encounter for follow-up examination after completed treatment for malignant neoplasm (principal); Z85.3 Personal history of malignant neoplasm of breast; I89.0 Lymphedema, not elsewhere classified; Z92.21 Personal history of antineoplastic chemotherapy; Z92.3 Personal history of irradiation; Z90.12 Acquired absence of left breast and nipple; Z79.890 Hormone replacement therapy; Z87.891 Personal history of nicotine dependence; Z88.1 Allergy status to other antibiotic agents; Z88.2 Allergy status to sulfonamides; Z88.8 Allergy status to other drugs, medicaments and biological substances; Z79.84 Long term (current) use of oral hypoglycemic drugs; Z79.82 Long term (current) use of aspirin; Z79.899 Other long term (current) drug therapy

== ENCOUNTER → 2024-02-23 | Outpatient (REF) | payer MEDICARE, OTHER ==
[2024-02-23 13:26] LABS: BASO % 0.5 % (0.0-1.0); EOS # 0.2 10^3/uL (0.0-0.5); EOS % 2.6 % (0.0-3.0); HEMATOCRIT 32.9 % (36.0-47.0); HEMOGLOBIN 10.3 g/dl (12.0-15.5); LYMPH # 0.8 10^3/uL (1.5-5.0); LYMPH % 14.3 % (24.0-44.0); MEAN CORPUSCULAR HEMOGLOBIN 33.2 pg (27.0-33.0); MEAN CORPUSCULAR HGB CONC 31.3 g/dl (32.0-36.5); MEAN CORPUSCULAR VOLUME 106.1 fl (80.0-96.0); MONO # 0.5 10^3/uL (0.0-0.8); MONO % 8.2 % (2.0-8.0); NEUTROPHILS # 4.3 10^3/uL (1.5-8.5); PLATELET COUNT, AUTOMATED 230 10^3/uL (150-450); WHITE BLOOD COUNT 5.8 10^3/uL (4.0-10.0)
[2024-02-23 13:36] LABS: ALBUMIN 3.7 G/DL (3.2-5.2); BILIRUBIN,TOTAL 0.3 MG/DL (0.3-1.2); CALCIUM LEVEL 10.2 MG/DL (8.3-10.6); CREATININE FOR GFR 1.03 MG/DL (0.55-1.30); POTASSIUM SERUM 5.1 MMOL/L (3.5-5.1); TOTAL PROTEIN 7.3 G/DL (5.7-8.2)
== END ==
LOC: M LABDRWAD 12:46
PROVIDERS: ATTEND Specialist
DX: C50.919 Malignant neoplasm of unspecified site of unspecified female breast (principal)

== ENCOUNTER → 2024-03-28 | Outpatient (REF) | payer MEDICARE, OTHER | LOC: M SFHCDERM 13:36 | PROVIDERS: ATTEND Physician Assistant | DX: L30.8 Other specified dermatitis (principal); L85.9 Epidermal thickening, unspecified ==

== ENCOUNTER → 2024-05-22 | Outpatient (REF) | payer MEDICARE, OTHER ==
[~2024-05-22] MED LIST changes: +GLIP-320 PO; -GLIP10TA18 PO
[2024-05-22 17:51] LABS: TOTAL 25(OH) VITAMIN D 34.2 NG/ML (20.0-100.0)
== END ==
LOC: M LAB REF 17:14
PROVIDERS: ATTEND Nurse Practitioner Family
DX: D50.9 Iron deficiency anemia, unspecified (principal); E55.9 Vitamin D deficiency, unspecified

== ENCOUNTER → 2024-11-05 | Outpatient (REF) | payer MEDICARE, OTHER ==
[~2024-11-05] MED LIST changes: +FLUO0.1C7 TOP; -FLUO1CRE4 TOP; +ISOS-18 PO; -ISOS30TAB PO; +SLOW1TAB3 PO; -SLOWTAB2 PO
[2024-11-05 18:26] LABS: BASO # 0.0 10^3/uL (0.0-0.2); BASO % 0.5 % (0.0-1.0); EOS # 0.2 10^3/uL (0.0-0.5); EOS % 2.6 % (0.0-3.0); LYMPH # 1.1 10^3/uL (1.5-5.0); LYMPH % 16.4 % (24.0-44.0); MONO # 0.6 10^3/uL (0.0-0.8); MONO % 9.3 % (2.0-8.0); NEUTROPHILS # 4.7 10^3/uL (1.5-8.5); NEUTROPHILS % 69.7 % (36.0-66.0); PLATELET COUNT, AUTOMATED 227 10^3/uL (150-450)
[2024-11-05 19:00] LABS: FREE T4 1.44 NG/DL (0.89-1.76)
[2024-11-05 19:03] LABS: TOTAL 25(OH) VITAMIN D 36.8 NG/ML (20.0-100.0)
[2024-11-05 19:05] LABS: IRON (FE) 64 UG/DL (50-170); PERCENT SATURATION 25.3 % (13.2-45.0)
[2024-11-05 19:06] LABS: ALT/SGPT 22 U/L (7.0-40); AST/SGOT 20 U/L (<34); CALCIUM LEVEL 9.9 MG/DL (8.3-10.6); CARBON DIOXIDE LEVEL 26 MMOL/L (20-31); CHLORIDE LEVEL 105 MMOL/L (98-107); CHOLESTEROL LEVEL 165 MG/DL (<200); CHOLESTEROL RISK RATIO 4.20 (<5); CREATININE FOR GFR 1.31 MG/DL (0.55-1.30); GLOMERULAR FILTRATION RATE 41.2 (>32); LDL CHOLESTEROL 91.6 MG/DL (<100); MAGNESIUM LEVEL 1.2 MG/DL (1.8-2.4); NON-HDL-C 125.8 MG/DL; POTASSIUM SERUM 5.3 MMOL/L (3.5-5.1); SODIUM LEVEL 143 MMOL/L (136-145); TRIGLYCERIDES LEVEL 171 MG/DL (<150); VITAMIN B12 LEVEL > 2000 PG/ML (211-911)
[2024-11-05 19:44] LABS: ESTIMATED AVERAGE GLUCOSE 131.0 MG/DL (60-110)
== END ==
LOC: M SFHCADAM 14:51
PROVIDERS: ATTEND Physician Assistant Medical
DX: E11.22 Type 2 diabetes mellitus with diabetic chronic kidney disease (principal); E55.9 Vitamin D deficiency, unspecified; E03.9 Hypothyroidism, unspecified; E83.42 Hypomagnesemia; N18.31 Chronic kidney disease, stage 3a

== ENCOUNTER → 2025-02-05 | Outpatient (CLI) | payer MEDICARE, OTHER ==
[2025-02-05 18:15] LABS: BASO # 0.0 10^3/uL (0.0-0.2); BASO % 0.5 % (0.0-1.0); EOS # 0.1 10^3/uL (0.0-0.5); EOS % 1.2 % (0.0-3.0); LYMPH # 0.8 10^3/uL (1.5-5.0); LYMPH % 12.6 % (24.0-44.0); MONO # 0.5 10^3/uL (0.0-0.8); MONO % 7.2 % (2.0-8.0); NEUTROPHILS # 5.1 10^3/uL (1.5-8.5); NEUTROPHILS % 77.7 % (36.0-66.0); PLATELET COUNT, AUTOMATED 239 10^3/uL (150-450)
[2025-02-05 18:53] LABS: ALT/SGPT 15.0 U/L (7.0-40); AST/SGOT 18.0 U/L (<34); CALCIUM LEVEL 10.4 MG/DL (8.3-10.6); CARBON DIOXIDE LEVEL 25.0 MMOL/L (20-31); CHLORIDE LEVEL 102.0 MMOL/L (98-107); CREATININE FOR GFR 1.29 MG/DL (0.55-1.30); GLOMERULAR FILTRATION RATE 42.0 (>32); POTASSIUM SERUM 5.1 MMOL/L (3.5-5.1); SODIUM LEVEL 141.0 MMOL/L (136-145)
== END ==
LOC: M LABDRWAD 12:06
PROVIDERS: ATTEND Nurse Practitioner
DX: C50.912 Malignant neoplasm of unspecified site of left female breast (principal)